=== PATIENT | female | born 1930 | race Caucasian/White ===

== ENCOUNTER 2016-11-01 11:08 | Inpatient (IN) | payer MEDICARE ==
[2016-11-01] VITALS (36 sets, daily range): BP systolic 67–193; BP diastolic 47–108; PULSE 77–136; RESP 12–42; TEMP 97.3–98; O2SAT 91–100
[~2016-11-01] VITALS: Ht 149.9 cm; Wt 54.0 kg
[~2016-11-01 11:08] MED LIST: ACET325 PO; ASPI81TA82 PO; ATEN-100 PO; CALCTAB92 PO; CARD120C4 PO; LEVO50TA51 PO; LORTA5 PO; OMEP20TA PO; REST15CA PO; TAB-TAB PO; VITD400 PO
--- NOTE | 2016-11-01 11:12 | PD ---
HPI Chief Complaint: slurred speech Time Seen by Provider: 11:12 Travel History International Travel<30 days: No Contact w/Intl Traveler<30days: No Traveled to known affect area: No History of Present Illness HPI 86-year-old female came to the emergency room brought straight back emergent from triage for slurred speech. Her is here who is giving most of the history. He says that since yesterday morning she's been having this slurred speech. Patient is very hard of hearing and unable to give significant history for herself. She looks to be in distress and tachycardia. She looked short of breath as well and sats were 93% on room air. Patient is denying of any chest pain or headache. [facility] Past Medical History Narrative Medical List of her past medical, surgical, social and family history as reviewed from the nursing note. Arthritis: Yes Asthma: No Heart Rhythm Problems: Yes Cancer: No Cardiac Catheterization: No Cardiovascular Problems: Yes High Cholesterol: No Chest Pain: No Congestive Heart Failure: No COPD: No Cerebrovascular Accident: No Diabetes: No Diminished Hearing: No Endocrine: Yes Gastrointestinal Disorders: Yes GERD: Yes Glaucoma: No Genitourinary: Yes Headaches: Yes Hepatitis: No Hiatal Hernia: No Hypertension: Yes Immune Disorder: No Kidney Stones: No Migraines: Yes Myocardial Infarction: No Renal Failure: No Seizures: No Sleep Apnea: No Thyroid Disease: Yes Ulcer: No Menopausal: Yes Past Surgical History Abdominal Surgery: No AICD: No Appendectomy: Yes Cardiac Surgery: No Cholecystectomy: Yes Coronary Artery Bypass Graft: No Endocrine Surgery: No Eye Surgery: Yes (BILATERAL CATARACT REMOVAL) Genitourinary Surgery: Yes (CYSTOLE, RECTOCELE 05/02) Gynecologic Surgery: Yes (HYSTERECTOMY TOTAL) Hysterectomy: Yes Joint Replacement: No Oral Surgery: Yes (TONSILLECTOMY) Pacemaker: No Thoracic Surgery: No Tonsillectomy: Yes Other Surgery: Yes (COLONOSCOPY/HEMMORHOIDS) Social History Alcohol Use: Yes (OCCASSIONAL WINE) Tobacco Use: No Substance Use: No Allergies-Medications (Allergen,Severity, Reaction): Coded Allergies: Prednisone (Verified Allergy, Severe, Hives, 11/01/16) Demerol (Verified Adverse Reaction, Intermediate, HALLUCINATIONS, 11/01/16) Lopressor (Verified Adverse Reaction, Unknown, 11/01/16) unknown Uncoded Allergies: PLASTIC TAPE (Allergy, Mild, RASH, 02/11/13) red rash Comments List of her allergies reviewed from the nursing note. Reported Meds & Prescriptions Reported Meds & Active Scripts Active Reported Aspirin 81 Mg Chew 81 Mg CHEW DAILY Temazepam 30 Mg Cap 30 Mg PO HS PRN Diltiazem (Diltiazem HCl) 120 Mg Tab 120 Mg PO DAILY Levothyroxine (Levothyroxine Sodium) 50 Mcg Tab 50 Mcg PO DAILY Levothyroxine (Levothyroxine Sodium) 100 Mcg Tab 100 Mcg PO SUNDAY AND SUNDAY Atenolol 25 Mg Tab 25 Mg PO HS Prednisone 20 Mg Tab 20 Mg PO BID Narrative Medication List of her home medications reviewed from the nursing note. Review of Systems Except as stated in HPI: all other systems reviewed are Neg Physical Exam Narrative GENERAL: Awake, alert, elderly, frail, moderate distress SKIN: Warm and dry. HEAD: Atraumatic. Normocephalic. EYES: Pupils equal and round. No scleral icterus. No injection or drainage. ENT: No nasal bleeding or discharge. Mucous membranes pink and moist. NECK: Trachea midline. No JVD. CARDIOVASCULAR: Irregularly irregular rhythm with tachycardia. No murmur appreciated. RESPIRATORY: Respiratory distress with accessory muscles used. By basilar crackles GASTROINTESTINAL: Abdomen soft, non-tender, nondistended. Hepatic and splenic margins not palpable. MUSCULOSKELETAL: No obvious deformities. No clubbing. No cyanosis. No edema. NEUROLOGICAL: Awake and alert. No obvious cranial nerve deficits. Motor grossly within normal limits. Normal speech. PSYCHIATRIC: Appropriate mood and affect; insight and judgment normal. Data Data Last Documented VS Vital Signs Date Time Temp Pulse Resp B/P Pulse Ox O2 Delivery O2 Flow Rate FiO2 11/01/16 13:45 124 22 141/104 95 Nasal Cannula 2 11/01/16 11:40 98.0 Orders Complete Blood Count With Diff (11/01/16 11:12) Comprehensive Metabolic Panel (11/01/16 11:12) Lactic Acid Sepsis Protocol (11/01/16 11:12) Urinalysis - C+S If Indicated (11/01/16 11:12) Blood Culture (11/01/16 11:12) Chest, Single Ap (11/01/16 11:12) Blood Glucose (11/01/16 11:12) Ecg Monitoring (11/01/16 11:12) Iv Access Insert/Monitor (11/01/16 11:12) Oximetry (11/01/16 11:12) Oxygen Administration (11/01/16 11:12) Troponin I (11/01/16 11:12) B-Type Natriuretic Peptide (11/01/16 11:12) Ct Brain W/O Iv Contrast(Rout) (11/01/16 ) Electrocardiogram (11/01/16 ) ^ Straight Catheter (11/01/16 12:43) Vital Signs (Adult) Q15MX4,Q4H (11/01/16 12:46) Microarray Operations Vice President / Telemetry TIMOTHY.Q8H (11/01/16 12:46) Cardiac Rhythm TIMOTHY.Q8H (11/01/16 12:46) ^ Notify Dr: Other (11/01/16 12:46) Diltiazem Inj (Cardizem Inj) (11/01/16 13:00) Diltiazem Inj (Cardizem Inj) (11/01/16 13:00) Piperacil-Tazo 4.5 Gm Premix (Zosyn 4.5 (11/01/16 13:15) Azithromycin Inj (Zithromax Inj) (11/01/16 13:15) Admit Order (Ed Use Only) (11/01/16 13:45) Labs Laboratory Tests Test 11/01/16 11/01/16 11:20 11:36 White Blood Count 12.7 TH/MM3 Red Blood Count 5.01 MIL/MM3 Hemoglobin 14.9 GM/DL Hematocrit 44.3 % Mean Corpuscular Volume 88.3 FL Mean Corpuscular Hemoglobin 29.7 PG Mean Corpuscular Hemoglobin 33.7 % Concent Red Cell Distribution Width 20.3 % Platelet Count 156 TH/MM3 Mean Platelet Volume 8.5 FL Neutrophils (%) (Auto) 83.3 % Lymphocytes (%) (Auto) 8.4 % Monocytes (%) (Auto) 8.2 % Eosinophils (%) (Auto) 0.0 % Basophils (%) (Auto) 0.1 % Neutrophils # (Auto) 10.6 TH/MM3 Lymphocytes # (Auto) 1.1 TH/MM3 Monocytes # (Auto) 1.0 TH/MM3 Eosinophils # (Auto) 0.0 TH/MM3 Basophils # (Auto) 0.0 TH/MM3 CBC Comment AUTO DIFF Differential Total Cells 100 Counted Neutrophils % (Manual) 76 % Band Neutrophils % 14 % Lymphocytes % 5 % Monocytes % 5 % Neutrophils # (Manual) 11.4 TH/MM3 Differential Comment FINAL DIFF MANUAL Platelet Estimate NORMAL Platelet Morphology Comment NORMAL Sodium Level 129 MEQ/L Potassium Level 4.1 MEQ/L Chloride Level 92 MEQ/L Carbon Dioxide Level 24.6 MEQ/L Anion Gap 12 MEQ/L Blood Urea Nitrogen 20 MG/DL Creatinine 0.73 MG/DL Estimat Glomerular Filtration 75 ML/MIN Rate Random Glucose 119 MG/DL Lactic Acid Level 3.8 mmol/L Calcium Level 8.3 MG/DL Total Bilirubin 1.1 MG/DL Aspartate Amino Transf 42 U/L (AST/SGOT) Alanine Aminotransferase 94 U/L (ALT/SGPT) Alkaline Phosphatase 68 U/L Troponin I 0.07 NG/ML B-Type Natriuretic Peptide 1109 PG/ML Total Protein 7.0 GM/DL Albumin 3.4 GM/DL Urine Color YELLOW Urine Turbidity CLEAR Urine pH 6.5 Urine Specific [place] 1.013 Urine Protein 100 mg/dL Urine Glucose (UA) NEG mg/dL Urine Ketones NEG mg/dL Urine Occult Blood NEG Urine Nitrite NEG Urine Bilirubin NEG Urine Urobilinogen LESS THAN 2.0 MG/DL Urine Leukocyte Esterase NEG Urine RBC 2 /hpf Urine WBC LESS THAN 1 /hpf Microscopic Urinalysis Comment CATH-CULT NOT IND MDM Medical Decision Making Medical Screen Exam Complete: Yes Emergency Medical Condition: Yes Medical Record Reviewed: Yes Interpretation(s) Twelve-lead EKG was reviewed by me. Atrial fibrillation, left axis deviation, RVR. Heart rate of 112 bpm. Differential Diagnosis Pneumonia, CVA, TIA Narrative Course 1:39 PM patient was given Cardizem to lower her heart rate. I did not get any significant neurologic deficit. Patient is very hard of hearing and difficult to follow commands. Her neuro exam was difficult. Blood test result showed leukocytosis along with bibasilar infiltrate. Head CT was negative. Patient's lactic acid was elevated. I have ordered IV Zosyn and Zithromax. In my opinion this is a case of pneumonia with sepsis. Patient will require to be admitted. Awaiting for the hospitalist call back. Patient does have history of atrial fibrillation and is not anticoagulated and hence there is a possibility of TIA/CVAs. However currently her exam did not seem like CVA. I' m little concerned from sepsis standpoint. I did cover her for sepsis with antibiotic but did not give her IV fluid since her BNP is elevated and with her A. fib with RVR there is a chance of congestive heart failure. Patient will require admission. 4:50 PM I was called in patient's room by the nurse because patient's blood pressure was in the 60s systolic and she was becoming incoherent and 8, respirations. The admitting physician was in the room and talking to the patient. Patient was unable to verbalize any of his questions. In fact not sure if she really understood what he was saying given her state. I decided to intubate her at that point. Patient was a full code. She was getting 2 L of IV fluid bolus under pressure bag. She was RSI. After the intubation blood pressure continued to be in 60s to 70s. I decided to put a central line and start her on pressors. It was also noticed that patient is on prednisone. I gave her 100 mg of IV hydrocortisone as a stress dose steroid. Patient will need to be admitted to the ICU given the situation. The admitting physician will speak with the dictating machine mechanic. I looked at the post intubation and postcentral line x-ray. The ET tube and the central line and looks to be in good position. No pneumothorax. Critical Care Narrative Aggregate critical care time was 75 minutes. Time to perform other separately billable procedures was not included in the critical care time. My time did not include minutes spent treating any other patients simultaneously or on activities that did not directly contribute to the patient's treatment. The services I provided to this patient were to treat and/or prevent clinically significant deterioration that could result in: Sepsis, pneumonia, A. fib with RVR I provided critical care services requiring my management, as noted below: Chart data review, documentation time, medication orders and management, vital sign assessments/reviewing monitor data, ordering and reviewing lab tests, ordering and interpreting/reviewing x-rays and diagnostic studies, care of the patient and discussion of the patient with the admitting physicians. Procedures Procedure Narrative After the risks and benefits were discussed the following procedure was performed: INTUBATION: The patient was put in optimal position for the procedure. Rapid sequence intubation was initiated by me using 10 milligrams of etomidate IV and 50 milligrams of succinylcholine IV. The patient was intubated with a 7.5 cuffed endotracheal tube. Tube placement was confirmed by visualization of the tube and balloon passing through the cords, capnometry and subsequent chest x-ray. Breath sounds were equal and well aerated bilaterally postintubation. No breath sounds over stomach. Patient tolerated procedure well. CENTRAL VENOUS LINE: The site was prepped with Betadine and sterilely draped. It was infiltrated with 1% lidocaine plain. The deep vein was cannulated using normal Seldinger technique. A triple lumen central line was placed in the left subclavian site and secured with simple interrupted suture. The site was sterilely dressed. The patient tolerated the procedure well. EKG Prior to Arrival: Yes Physician Communication Physician Communication Dr. Mane, Dr. Spivey Diagnosis Primary Impression: Sepsis Qualified Code: A41.9 - Sepsis, due to unspecified organism Additional Impressions: Pneumonia Qualified Code: J18.9 - Pneumonia of both lower lobes due to infectious organism Atrial fibrillation with RVR Respiratory failure requiring intubation Septic shock Admitting Information Admitting Physician Requests: Admit Keyonna Estrada MD Nov 01, 2016 11:12
[2016-11-01] MEDS ORDERED: LEVO100T5 PO (11:28)
[2016-11-01] MEDS ORDERED: PRED20 PO (11:28)
[2016-11-01] MEDS ORDERED: ASPI81CH CHEW (11:28)
[2016-11-01] MEDS ORDERED: ATEN25TA PO (11:28)
[2016-11-01] MEDS ORDERED: LEVO50TA4 PO (11:28)
[2016-11-01] MEDS ORDERED: TEMA30CA PO (11:28)
[2016-11-01] MEDS ORDERED: DILT120T PO (11:28)
[2016-11-01 11:42] LABS: AUTOMATED NEUTROPHIL # 10.6 TH/MM3 (1.8-7.7); BASOPHIL % 0.1 % (0.0-2.0); HEMATOCRIT 44.3 % (35.0-46.0); LYMPH % 8.4 % (9.0-44.0); LYMPHOCYTE # 1.1 TH/MM3 (1.0-4.8); MEAN CELL VOLUME 88.3 FL (80.0-100.0); MEAN CORPUSCULAR HEMOGLOBIN 29.7 PG (27.0-34.0); MEAN CORPUSCULAR HGB CONC 33.7 % (32.0-36.0); MONO % 8.2 % (0.0-8.0); NEUT % 83.3 % (16.0-70.0); PLATELET COUNT 156 TH/MM3 (150-450); RED BLOOD COUNT 5.01 MIL/MM3 (4.00-5.30); RED CELL DISTRIBUTION WIDTH 20.3 % (11.6-17.2); WHITE BLOOD COUNT 12.7 TH/MM3 (4.0-11.0)
[2016-11-01 11:46] LABS: HEMO FLAGS AUTO DIFF
[2016-11-01 11:56] LABS: BLOOD, URINE NEG (NEG); GLUCOSE,URINE NEG (NEG); KETONE, URINE NEG (NEG); NITRITE,URINE NEG (NEG); PH, URINE 6.5 (5.0-8.5); URINE COLOR YELLOW (YELLW/STRAW)
[2016-11-01 11:57] LABS: COMMENT (UR) CATH-CULT NOT IND; CULTURE IF INDICATED CATH CULTURE NOT IND
[2016-11-01 12:03] LABS: ALKALINE PHOSPHATASE 68 U/L (45-117); TOTAL BILIRUBIN ADULT 1.1 MG/DL (0.2-1.0)
[2016-11-01 12:08] LABS: ALT (GPT) 94 U/L (10-53); ANION GAP 12 MEQ/L (5-15); AST (GOT) 42 U/L (15-37); BICARBONATE 24.6 MEQ/L (21.0-32.0); BLOOD UREA NITROGEN 20 MG/DL (7-18); CHLORIDE 92 MEQ/L (98-107); GLOMERULAR FILTRATION RATE 75 ML/MIN (>89); POTASSIUM 4.1 MEQ/L (3.5-5.1); SODIUM (NA) 129 MEQ/L (136-145)
[2016-11-01 12:27] LABS: BANDS 14 % (0-6); NEUTROPHIL # MANUAL DIFF 11.4 TH/MM3 (1.8-7.7); PLATELET ESTIMATE SMEAR NORMAL (NORMAL); POLYS (SEG NEUTROPHILS) 76 % (16-70); WBC DIFF SAMPLE 100
[2016-11-01 12:28] LABS: PLATELET MORPHOLOGY NORMAL (NORMAL); SCAN/DIFF FINAL DIFF MANUAL
--- NOTE | 2016-11-01 12:43 | RADRPT ---
EXAM DATE/TIME: 11/01/2016 11:33 [facility] COMPARISON: No previous studies available for comparison. INDICATIONS : Short of breath. Slurred speech, fatigue. MEDICAL HISTORY : None. SURGICAL HISTORY : None. ENCOUNTER: Initial ACUITY: 2 days PAIN SCORE: 0/10 LOCATION: Bilateral chest FINDINGS: Dense consolidation seen medially of both lung bases. There are small, bilateral pleural effusions. I don't see a pneumothorax. Heart size stable, upper limits of normal. Thoracic aorta is mildly tortuous. CONCLUSION: Bibasilar pneumonia. Abhijeet Domingo MD on November 01, 2016 at 12:40 Board Certified Radiologist. This report was verified electronically.
--- NOTE | 2016-11-01 12:55 | RADRPT ---
EXAM DATE/TIME: 11/01/2016 11:53 [facility] COMPARISON: No previous studies available for comparison. INDICATIONS : TIA RADIATION DOSE: 30.97 CTDIvol (mGy) MEDICAL HISTORY : Cardiovascular disease. Hypertension. SURGICAL HISTORY : Appendectomy. Cholecystectomy.Hysterectomy. ENCOUNTER: Initial ACUITY: 1 day PAIN SCALE: 5/10 LOCATION: cranial TECHNIQUE: Multiple contiguous axial images were obtained of the head. Using automated exposure control and adj ustment of the mA and/or kV according to patient size, radiation dose was kept as low as reasonably a chievable to obtain optimal diagnostic quality images. FINDINGS: CEREBRUM: The ventricles are normal for age. No evidence of midline shift, mass lesion, hemorrhage or acute in farction. No extra-axial fluid collections are seen. Diffuse cortical atrophy noted. POSTERIOR FOSSA: The cerebellum and brainstem are intact. The 4th ventricle is midline. The cerebellopontine angle i s unremarkable. EXTRACRANIAL: The visualized portion of the orbits is intact. SKULL: The calvaria is intact. No evidence of skull fracture. CONCLUSION: Atrophy. No acute intracranial abnormality demonstrated. Abhijeet Domingo MD on November 01, 2016 at 12:53 Board Certified Radiologist. This report was verified electronically.
[2016-11-01] MEDS ORDERED: DILTIAZEM HCL 25 MG/5 ML VIAL IVP ONE (13:00)
[2016-11-01] MEDS ORDERED: AZITHROMYCIN INJ 500 MG in SODIUM CHLOR 0.9% 250 ML INJ 250 ML IV ONE (13:15)
[2016-11-01] MEDS ORDERED: PIPERACIL-TAZO 4.5 GM PREMIX 100 ML IV ONE (13:15)
[2016-11-01 13:35] LABS: LACTIC ACID GHOST NOT REPORTABLE
[2016-11-01] MEDS: DILTIAZEM INJ 125 MG in SODIUM CHLORIDE 0.9% INJ 100 ML IV SCH (13:43)
--- NOTE | 2016-11-01 15:59 | HHI.HP ---
HPI Service [facility] Hospitalists Primary Care Physician Joaquin Guzmán MD Admission Diagnosis sepsis, pneumonia, A. fib with RVR Chief Complaint: Slurred speech Travel History International Travel<30 Days: No Contact w/Intl Traveler <30 Da: No Traveled to Known Affected Are: No History of Present Illness Ms. Carvajal is a pleasant 86 y/o WF with a hx of paroxysmal atrial fibrillation, COPD, chronic hyponatremia felt to be a reset osmostat, peripheral neuropathy, hypertension, anxiety, and hx of pulmonary nodules felt to likely be lung cancer as her PCP and Dr. Gaytan have been monitoring this for several years but more recently this has been increasing in size. CT scan on 06-09-16 showed a 5.6cm presumed lung cancer of the posterior right lung base. She has declined further workup/intervention or treatment for this and is followed by Dr Nina Osborne. Pt presented to the ED at [facility] on 11/01/16 with reported slurred speech since yesterday morning. The patient is very hard of hearing and was unable to give significant history for herself to the ED but had a friend present with her. Pt found to be in A. fib RVR with HR in the 120-130's. She was given IV Cardizem and started on a Cardizem gtt. Head CT noted atrophy otherwise no acute changes. Pt also noted to be in respiratory distress. CXR indicated possible bibasilar pneumonia. Pt was given Azithromycin and Rocephin. At the time of our examination the pt was in significant respiratory distress on nonrebreather and the pts nurse states that the pts BP has dropped into the 60' s systolic. Pt is a full code and was being set up for intubation by the ER physician. Review of Systems ROS Limitations: Clinical Condition Past Family Social History Past Medical History Chronic hyponatremia, felt to be a reset osmostat Paroxysmal atrial fibrillation Pulmonary nodules (CT scan on 06-09-16 showed a 5.6cm presumed lung cancer of the posterior right lung base. She still declines further intervention or treatment for this and is followed by Dr Harrison.) Postmenopausal osteoporosis Peripheral neuropathy Hypertension Anxiety Decreased hearing Hypothyroidism GERD Mitral valve prolapse COPD Memory issues 2-D echo 11/2011 - Estimated EF of 65% - Left atrium mildly dilated - The right atrium normal size. - Mild to moderate aortic regurgitation - Mild to moderate mitral regurgitation - Pulmonary pressures were estimated to be normal. Myocardial perfusion scan on 02-12-13 showed no ischemia and an EF of 64%. Past Surgical History ANDRZEJ with BSO Cholecystectomy Cystocele and rectocele repair Tonsillectomy Bilateral cataract surgery Reported Medications -Aspirin 81 Mg CHEW DAILY -Temazepam 30 Mg PO HS PRN -Diltiazem 60 Mg PO DAILY -Levothyroxine 50 Mcg PO -Levothyroxine 100 Mcg PO [place]- -Atenolol 25 Mg PO HS ?Prednisone 20 Mg PO BID Allergies: Coded Allergies: Prednisone (Verified Allergy, Severe, Hives, 11/01/16) Demerol (Verified Adverse Reaction, Intermediate, HALLUCINATIONS, 11/01/16) Lopressor (Verified Adverse Reaction, Unknown, 11/01/16) unknown Uncoded Allergies: PLASTIC TAPE (Allergy, Mild, RASH, 02/11/13) red rash Family History Mother with a hx of MS and colon cancer Father with a hx of laryngeal cancer Social History Hx of tobacco use, smoked 1ppd x 15 years, quit around 1986 Occasional alcohol use Denies any illicit drug use Physical Exam Vital Signs Vital Signs Date Time Temp Pulse Resp B/P Pulse Ox O2 Delivery O2 Flow Rate FiO2 11/01/16 14:27 124 18 124/91 96 Nasal Cannula 3 11/01/16 14:02 114 18 118/84 96 Nasal Cannula 3 11/01/16 13:50 103 18 106/72 92 Nasal Cannula 3 11/01/16 13:49 119 22 107/72 95 Nasal Cannula 2 11/01/16 13:45 124 22 141/104 95 Nasal Cannula 2 11/01/16 13:42 136 24 142/108 97 Nasal Cannula 2 11/01/16 12:45 122 28 142/99 96 Nasal Cannula 2 11/01/16 11:40 98.0 125 40 160/98 99 Nasal Cannula 2 11/01/16 11:14 96 Nasal Cannula 2 11/01/16 11:14 46 96 Nasal Cannula 2 11/01/16 11:10 97.9 125 42 145/90 94 Physical Exam GENERAL: Thin elderly female in respiratory distress HEENT: Atraumatic. Normocephalic. No temporal or scalp tenderness. No scleral icterus. Airway patent. NECK: Trachea midline, supple, nontender. CARDIO: Irregular, tachy. RESP: Coarse breath sounds bilaterally ABD: +BS, soft, non-tender, nondistended. EXT: Extremities without clubbing, cyanosis, or edema. NEURO: Unable to assess Laboratory Laboratory Tests Test 11/01/16 11/01/16 11/01/16 11:20 11:36 14:38 White Blood Count 12.7 Red Blood Count 5.01 Hemoglobin 14.9 Hematocrit 44.3 Mean Corpuscular Volume 88.3 Mean Corpuscular Hemoglobin 29.7 Mean Corpuscular Hemoglobin 33.7 Concent Red Cell Distribution Width 20.3 Platelet Count 156 Mean Platelet Volume 8.5 Neutrophils (%) (Auto) 83.3 Lymphocytes (%) (Auto) 8.4 Monocytes (%) (Auto) 8.2 Eosinophils (%) (Auto) 0.0 Basophils (%) (Auto) 0.1 Neutrophils # (Auto) 10.6 Lymphocytes # (Auto) 1.1 Monocytes # (Auto) 1.0 Eosinophils # (Auto) 0.0 Basophils # (Auto) 0.0 CBC Comment AUTO DIFF Differential Total Cells 100 Counted Neutrophils % (Manual) 76 Band Neutrophils % 14 Lymphocytes % 5 Monocytes % 5 Neutrophils # (Manual) 11.4 Differential Comment FINAL DIFF MANUAL Platelet Estimate NORMAL Platelet Morphology Comment NORMAL Sodium Level 129 Potassium Level 4.1 Chloride Level 92 Carbon Dioxide Level 24.6 Anion Gap 12 Blood Urea Nitrogen 20 Creatinine 0.73 Estimat Glomerular Filtration 75 Rate Random Glucose 119 Lactic Acid Level 3.8 2.1 Calcium Level 8.3 Total Bilirubin 1.1 Aspartate Amino Transf 42 (AST/SGOT) Alanine Aminotransferase 94 (ALT/SGPT) Alkaline Phosphatase 68 Troponin I 0.07 B-Type Natriuretic Peptide 1109 Total Protein 7.0 Albumin 3.4 Urine Color YELLOW Urine Turbidity CLEAR Urine pH 6.5 Urine Specific [place] 1.013 Urine Protein 100 Urine Glucose (UA) NEG Urine Ketones NEG Urine Occult Blood NEG Urine Nitrite NEG Urine Bilirubin NEG Urine Urobilinogen LESS THAN 2.0 Urine Leukocyte Esterase NEG Urine RBC 2 Urine WBC LESS THAN 1 Microscopic Urinalysis Comment CATH-CULT NOT IND Date/Time Procedure Status Source Growth 11/01/16 11:20 Aerobic Blood Culture Received Blood Peripheral Pending 11/01/16 11:20 Anaerobic Blood Culture Received Blood Peripheral Pending Result Diagram: 11/01/16 1120 11/01/16 1120 Imaging Last Impressions Chest X-Ray 11/01/16 1112 Signed Impressions: Service Date/Time: Tuesday, November 01, 2016 11:33 - CONCLUSION: Bibasilar pneumonia. Abhijeet Domingo MD Head CT 11/01/16 0000 Signed Impressions: Service Date/Time: Tuesday, November 01, 2016 11:53 - CONCLUSION: Atrophy. No acute intracranial abnormality demonstrated. Abhijeet Domingo MD Septic Shock Reassessment Heart: Irregular Lungs: Course Skin: Warm Assessment and Plan Problem List: (1) Respiratory failure requiring intubation Status: Acute Plan: - Pt admitted with increased respiratory effort requiring intubation in the ED. - CXR noted bibasilar pneumonia. - Pt with known right lower lobe pulmonary mass which has been monitored by Dr. Gaytan as an outpt and she has declined further workup/biopsy or treatment. - Pt is reportedly a full code and required intubation in the ED - Cloth Shrinking Supervisor is consulted and will assume care of the pt. (2) Atrial fibrillation with RVR Status: Acute Plan: - Pt with hx of paroxysmal atrial fibrillation and was noted ot noris Christianson fib RVR in the ED - Pt has been started on Cardizem gtt but BP has bottomed out with systolic BP in the 60's - Further management per Cloth Shrinking Supervisor - Telemetry - Pt normally takes Atenolol 25mg po daily and Cardizem 60mg po daily at home. (3) Pneumonia Status: Acute Plan: - See above. (4) Pulmonary nodule Status: Chronic Plan: - Pt follows with Dr. Gaytan - Previous CT scan on 06-09-16 showed a 5.6cm presumed lung cancer of the posterior right lung base. She still declines further intervention or treatment for this. (5) HTN (hypertension) Status: Chronic Plan: - BP low at admission (6) Chronic hyponatremia Status: Chronic Plan: - Stable. - Na+ tends to be around 130 per outpt records Assessment and Plan Patient examined. Assessment and plan formulated with Mindy Cowart PA-C. I agree with the above. when I entered the room pt became hypotensive and more respiratory distress. she was intubated and [facility] consulted. Discussed with Dr Spivey. pt will be on [facility] sv for now. Physician Certification 2 Midnight Certification Type: Admission for Inpatient Services Order for Inpatient Services The services are ordered in accordance with Medicare regulations or non- Medicare payer requirements, as applicable. In the case of services not specified as inpatient-only, they are appropriately provided as inpatient services in accordance with the 2-midnight benchmark. Estimated LOS (days): 3 3 days is the estimated time the patient will need to remain in the hospital, assuming treatment plan goals are met and no additional complications. Post-Hospital Plan: Not yet determined Problem Qualifiers (1) Pneumonia: Qualified Code: J18.9 - Pneumonia of both lower lobes due to infectious organism Mindy Cowart Nov 01, 2016 15:59 Maury Reyes MD Nov 01, 2016 17:21
[2016-11-01] MEDS ORDERED: ETOMIDATE 20 MG/10 ML VIAL ONE (16:13)
[2016-11-01] MEDS ORDERED: SUCCINYLCHOLINE CHLORIDE 200 MG/10 ML VIAL ONE (16:14)
[2016-11-01] MEDS ORDERED: HYDROCORTISONE SOD SUCCINATE 100 MG VIAL IV PUSH ONE (16:30)
[2016-11-01] MEDS ORDERED: MIDAZOLAM HCL 5 MG/ML VIAL (1 ML) ONE (16:39)
[2016-11-01] MEDS ORDERED: SODIUM CHLOR 0.9% 1000 ML INJ 1,000 ML IV ONE ×3 (16:45→17:08)
[2016-11-01] MEDS ORDERED: ETOMIDATE 20 MG/10 ML VIAL IV PUSH ONE (16:45)
[2016-11-01] MEDS ORDERED: SUCCINYLCHOLINE CHLORIDE 200 MG/10 ML VIAL IV PUSH ONE (16:45)
[2016-11-01] MEDS ORDERED: MIDAZOLAM HCL 2 MG/2 ML VIAL IV PUSH ONE (16:45)
[2016-11-01] MEDS ORDERED: NOREPINEPHRINE-DEXTROSE DRIP 250 ML IV SCH ×2 (17:00→17:15)
[2016-11-01] MEDS ORDERED: TERBUTALINE INJ 1 MG/ML AMP SQ PRN ×2 (17:00→17:15)
[2016-11-01] MEDS ORDERED: NOREPINEPHRINE INJ 4 MG in SODIUM CHLOR 0.9% 250 ML INJ 246 ML IV SCH (17:00)
[2016-11-01] MEDS: SODIUM CHLOR 0.9% 1000 ML INJ 100 ML IV ONE ×2 (17:08→18:00)
[2016-11-01] MEDS: SODIUM CHLOR 0.9% 1000 ML INJ 1,000 ML IV ONE ×2 (17:08→18:04)
--- NOTE | 2016-11-01 17:10 | RADRPT ---
EXAM DATE/TIME: 11/01/2016 16:33 [facility] COMPARISON: CHEST SINGLE AP, November 01, 2016, 11:33. INDICATIONS : ET tube and OG tube placement. MEDICAL HISTORY : unobtainable SURGICAL HISTORY : unobtainable ENCOUNTER: Initial ACUITY: 1 day PAIN SCORE: Non-responsive. LOCATION: Bilateral upper chest FINDINGS: The cardiac silhouette is enlarged in transverse diameter. There are findings of congestive heart herb lure with interstitial and alveolar opacity bilaterally. Endotracheal tube is in good position above the umberto. Nasogastric tube is coiled at the level of the thoracic inlet. Moderate size bilateral pl eural effusions are identified. A left sided subclavian vein catheter is in place without pneumothora x with its tip in the superior vena cava. CONCLUSION: 1. Uncomplicated line placement. No evidence of pneumothorax. 2. Satisfactory position of endotracheal tube as above. 3. Nasogastric tube coiled in the hypopharynx with its tip at the thoracic inlet 4. Cardiomegaly and findings of congestive heart failure. Anil Oconnor MD on November 01, 2016 at 17:08 Board Certified Radiologist. This report was verified electronically.
[2016-11-01] MEDS ORDERED: Vancomycin Consult Pharmacy 1 EA XX SCH (17:15)
[2016-11-01] MEDS ORDERED: PIPERACIL-TAZO 4.5 GM PREMIX 100 ML IV SCH (17:15)
[2016-11-01] MEDS ORDERED: CHLORHEXIDINE GLUCONATE 2 % 1 PACK (2 CLOTHS) TOP PRN (17:15)
[2016-11-01] MEDS ORDERED: MISCELLANEOUS NURSING INFORMATION XX SCH (17:15)
--- NOTE | 2016-11-01 17:20 | PD.CONS ---
HPI Service Critical Care Medicine Consult Requested By Primary Care Physician Joaquin Guzmán MD History of Present Illness 86-year-old female came for slurred speech. Her is here who is giving most of the history. He says that since yesterday morning she's been having this slurred speech. She looked short of breath as well and sats were 93% on room air, was tachycardic and hypotensive. She was intubated by ER attending and is admitted to ICU with bilateral pneumonia. Review of Systems ROS Unable to obtain patient is sedated and intubated Past Family Social History Allergies: Coded Allergies: Prednisone (Verified Allergy, Severe, Hives, 11/01/16) Demerol (Verified Adverse Reaction, Intermediate, HALLUCINATIONS, 11/01/16) Lopressor (Verified Adverse Reaction, Unknown, 11/01/16) unknown Uncoded Allergies: PLASTIC TAPE (Allergy, Mild, RASH, 02/11/13) red rash Past Medical History Chronic hyponatremia, felt to be a reset osmostat Paroxysmal atrial fibrillation Pulmonary nodules (CT scan on 06-09-16 showed a 5.6cm presumed lung cancer of the posterior right lung base. She still declines further intervention or treatment for this and is followed by Dr Harrison.) Postmenopausal osteoporosis Peripheral neuropathy Hypertension Anxiety Decreased hearing Hypothyroidism GERD Mitral valve prolapse COPD Memory issues 2-D echo 11/2011 - Estimated EF of 65% - Left atrium mildly dilated - The right atrium normal size. - Mild to moderate aortic regurgitation - Mild to moderate mitral regurgitation - Pulmonary pressures were estimated to be normal. Myocardial perfusion scan on 02-12-13 showed no ischemia and an EF of 64%. Past Surgical History ANDRZEJ with BSO Cholecystectomy Cystocele and rectocele repair Tonsillectomy Bilateral cataract surgery Reported Medications Reported Meds & Active Scripts Active Reported Aspirin 81 Mg Chew 81 Mg CHEW DAILY Temazepam 30 Mg Cap 30 Mg PO HS PRN Diltiazem (Diltiazem HCl) 120 Mg Tab 120 Mg PO DAILY Levothyroxine (Levothyroxine Sodium) 50 Mcg Tab 50 Mcg PO DAILY Levothyroxine (Levothyroxine Sodium) 100 Mcg Tab 100 Mcg PO SUNDAY AND SUNDAY Atenolol 25 Mg Tab 25 Mg PO HS Prednisone 20 Mg Tab 20 Mg PO BID Active Ordered Medications Current Medications Medications (Trade) Dose Ordered Sig/Boy Route PRN Reason Start Time Stop Time Status Last Admin Dose Admin Diltiazem HCl 125 mg/Sodium Chloride 125 ml @ 0 mls/hr TITRATE IV 11/01/16 13:00 11/01/16 13:43 Sodium Chloride 1,000 ml @ 999 mls/hr BOLUS ONCE IV 11/01/16 16:45 11/01/16 17:45 Sodium Chloride 1,000 ml @ 999 mls/hr BOLUS ONCE IV 11/01/16 16:45 11/01/16 17:45 Norepinephrine Bitartrate 250 ml @ 0 mls/hr TITRATE IV 11/01/16 17:00 Norepinephrine Bitartrate/Sodium Chloride (Levophed Inj/NS 250 ml Inj) 250 ml @ 0 mls/hr TITRATE IV 11/01/16 17:00 Terbutaline Sulfate 1 mg 1 mg UNSCH PRN SQ For Extravasation 11/01/16 17:00 Piperacillin Sod/ Tazobactam Sod 100 ml @ 200 mls/hr Q6H IV 11/01/16 17:15 UNV Azithromycin 500 mg/Sodium Chloride 250 ml @ 250 mls/hr Q24H IV 11/01/16 17:15 UNV Vancomycin HCl 1000 mg/Sodium Chloride 250 ml @ 250 mls/hr Q12H IV 11/01/16 17:15 UNV Pharmacy Profile Note 0 ml @ 0 mls/hr UNSCH XX 11/01/16 17:15 UNV Sodium Chloride (NS 1000 ml Inj) 1,000 ml @ 150 mls/hr Q6H40M IV 11/01/16 17:08 IV Flush (NS Flush) 2 ml UNSCH PRN IV FLUSH FLUSH AFTER USING IV ACCESS 11/01/16 17:15 IV Flush (NS Flush) 2 ml BID IV FLUSH 11/01/16 21:00 Famotidine (Pepcid Inj) 20 mg Q12HR IV PUSH 11/01/16 21:00 UNV Heparin Sodium (Porcine) 5000 units 5,000 units Q12H SQ 11/01/16 17:15 UNV Sodium Chloride 1,000 ml @ 1,000 mls/hr Q1H ONCE IV 11/01/16 17:08 11/01/16 18:07 Sodium Chloride (NS 1000 ml Inj) 1,000 ml @ 1,000 mls/hr Q1H ONCE IV 11/01/16 17:08 11/01/16 18:07 Miscellaneous Information 1 Q361D XX 11/01/16 17:15 Chlorhexidine Gluconate (Chlorhexidine 2% Cloth) 3 pack Taper DAILY@04 TOP 11/02/16 04:00 10/29/17 03:59 Chlorhexidine Gluconate 3 pack 3 pack UNSCH PRN TOP HYGIENIC CARE 11/01/16 17:15 Norepinephrine Bitartrate (Levophed-Dextrose Drip) 250 ml @ 0 mls/hr TITRATE IV 11/01/16 17:15 Terbutaline Sulfate 1 mg 1 mg UNSCH PRN SQ For Extravasation 11/01/16 17:15 Propofol (Diprivan 1000 Mg/100ml Inj) 100 ml @ 0 mls/hr TITRATE IV 11/01/16 17:15 Chlorhexidine Gluconate (Peridex 0.12% Liq) 15 ml BID@08,20 MT 11/01/16 20:00 Protein (Beneprotein Powder) 1 pack TID G-TUBE 11/01/16 18:00 Family History Noncontributory Social History Quit smoking in 1986 Physical Exam Vital Signs Vital Signs Date Time Temp Pulse Resp B/P Pulse Ox O2 Delivery O2 Flow Rate FiO2 11/01/16 17:02 82 18 67/52 99 Ventilator 100 11/01/16 16:39 124 18 109/76 96 Ventilator 100 11/01/16 16:24 91 18 77/61 96 Ventilator 100 11/01/16 16:22 91 18 85/59 91 Ventilator 100 11/01/16 16:19 100 11/01/16 16:12 115 24 69/52 92 Non-Rebreather 15 11/01/16 16:01 96 24 67/47 94 Nasal Cannula 3 11/01/16 15:45 95 16 81/57 95 Nasal Cannula 3 11/01/16 15:30 112 16 113/78 96 Nasal Cannula 3 11/01/16 15:00 116 12 101/84 97 Nasal Cannula 3 11/01/16 14:27 124 18 124/91 96 Nasal Cannula 3 11/01/16 14:02 114 18 118/84 96 Nasal Cannula 3 11/01/16 13:50 103 18 106/72 92 Nasal Cannula 3 11/01/16 13:49 119 22 107/72 95 Nasal Cannula 2 11/01/16 13:45 124 22 141/104 95 Nasal Cannula 2 11/01/16 13:42 136 24 142/108 97 Nasal Cannula 2 11/01/16 12:45 122 28 142/99 96 Nasal Cannula 2 11/01/16 11:40 98.0 125 40 160/98 99 Nasal Cannula 2 11/01/16 11:14 96 Nasal Cannula 2 11/01/16 11:14 46 96 Nasal Cannula 2 11/01/16 11:10 97.9 125 42 145/90 94 Physical Exam GENERAL: Elderly cyanotic female malnourished sedated and intubated SKIN: Warm and dry. HEAD: Normocephalic. EYES: No scleral icterus. No injection or drainage. NECK: Supple, trachea midline. No JVD or lymphadenopathy. CARDIOVASCULAR: Regular rate and rhythm without murmurs, gallops, or rubs. RESPIRATORY: Breath sounds equal bilaterally. No accessory muscle use. GASTROINTESTINAL: Abdomen soft, non-tender, nondistended. MUSCULOSKELETAL: No cyanosis, or edema. BACK: Nontender without obvious deformity. No CVA tenderness. Laboratory Laboratory Tests Test 11/01/16 11/01/16 11/01/16 11:20 11:36 14:38 White Blood Count 12.7 Red Blood Count 5.01 Hemoglobin 14.9 Hematocrit 44.3 Mean Corpuscular Volume 88.3 Mean Corpuscular Hemoglobin 29.7 Mean Corpuscular Hemoglobin 33.7 Concent Red Cell Distribution Width 20.3 Platelet Count 156 Mean Platelet Volume 8.5 Neutrophils (%) (Auto) 83.3 Lymphocytes (%) (Auto) 8.4 Monocytes (%) (Auto) 8.2 Eosinophils (%) (Auto) 0.0 Basophils (%) (Auto) 0.1 Neutrophils # (Auto) 10.6 Lymphocytes # (Auto) 1.1 Monocytes # (Auto) 1.0 Eosinophils # (Auto) 0.0 Basophils # (Auto) 0.0 CBC Comment AUTO DIFF Differential Total Cells 100 Counted Neutrophils % (Manual) 76 Band Neutrophils % 14 Lymphocytes % 5 Monocytes % 5 Neutrophils # (Manual) 11.4 Differential Comment FINAL DIFF MANUAL Platelet Estimate NORMAL Platelet Morphology Comment NORMAL Sodium Level 129 Potassium Level 4.1 Chloride Level 92 Carbon Dioxide Level 24.6 Anion Gap 12 Blood Urea Nitrogen 20 Creatinine 0.73 Estimat Glomerular Filtration 75 Rate Random Glucose 119 Lactic Acid Level 3.8 2.1 Calcium Level 8.3 Total Bilirubin 1.1 Aspartate Amino Transf 42 (AST/SGOT) Alanine Aminotransferase 94 (ALT/SGPT) Alkaline Phosphatase 68 Troponin I 0.07 B-Type Natriuretic Peptide 1109 Total Protein 7.0 Albumin 3.4 Urine Color YELLOW Urine Turbidity CLEAR Urine pH 6.5 Urine Specific [place] 1.013 Urine Protein 100 Urine Glucose (UA) NEG Urine Ketones NEG Urine Occult Blood NEG Urine Nitrite NEG Urine Bilirubin NEG Urine Urobilinogen LESS THAN 2.0 Urine Leukocyte Esterase NEG Urine RBC 2 Urine WBC LESS THAN 1 Microscopic Urinalysis Comment CATH-CULT NOT IND Date/Time Procedure Status Source Growth 11/01/16 11:20 Aerobic Blood Culture Received Blood Peripheral Pending 11/01/16 11:20 Anaerobic Blood Culture Received Blood Peripheral Pending Result Diagram: 11/01/16 1120 11/01/16 1120 Imaging Last 24 hours Impressions Chest X-Ray 11/01/16 1112 Signed Impressions: Service Date/Time: Tuesday, November 01, 2016 11:33 - CONCLUSION: Bibasilar pneumonia. Abhijeet Domingo MD Head CT 11/01/16 0000 Signed Impressions: Service Date/Time: Tuesday, November 01, 2016 11:53 - CONCLUSION: Atrophy. No acute intracranial abnormality demonstrated. Abhijeet Domingo MD Chest X-Ray 11/01/16 0000 Signed Impressions: Service Date/Time: Tuesday, November 01, 2016 16:33 - CONCLUSION: 1. Uncomplicated line placement. No evidence of pneumothorax. 2. Satisfactory position of endotracheal tube as above. 3. Nasogastric tube coiled in the hypopharynx with its tip at the thoracic inlet 4. Cardiomegaly and findings of congestive heart failure. Anil Oconnor MD Assessment and Plan Assessment and Plan Respiratory failure - bilateral pneumonia - Broad-spectrum antibiotics - Mechanical ventilation - Follow-up cultures - CT chest to rule out SVC syndrome Septic shock - Due to above - Central line - Arterial line - Monitor SVV - Aggressive IV fluid resuscitation - IV hydrocortisone Hyponatremia - Per chart chronic - Pulmonary nodule - possible malignancy - CT chest with contrast Hypothyroidism - Synthroid DVT GI prophylaxis - Heparin and Pepcid Critical Care: The total critical care time was 35 minutes. Time to perform other separately billable procedures was not included in the critical care time. Isaac Spivey MD Nov 01, 2016 17:20
[2016-11-01 17:30] LABS: BLOOD GAS BASE EXCESS -9.5 mmol/L (-2-2); BLOOD GAS CARBOXYHEMOGLOBIN 0.9 % (0-4); BLOOD GAS HCO3 14 mmol/L (22-26); BLOOD GAS METHEMOGLOBIN 0.1 % (0-2); BLOOD GAS O2 HGB SATURATION 99 % (90-100); BLOOD GAS PCO2 24 mmHg (38-42); BLOOD GAS PO2 296 mmHG (61-120); CRITICAL VALUE YES; OXYGEN DEVICE VENTILATOR; TEMP CORR TO 98.6
[2016-11-01 17:31] LABS: DRAW SITE BR; FIO2 100 %; NUMBER OF ARTERIAL PUNCTURES 1; STAT NO; ULNAR PULSE PRESENT; VENT SETTINGS AC/18/500/PEEP+5
[2016-11-01] MEDS: SODIUM CHLOR 0.9% 1000 ML INJ 1,000 ML IV SCH ×2 (17:50→23:48)
[2016-11-01] MEDS: BENEPROTEIN POWDER 1 PACK G-TUBE SCH (18:00)
[2016-11-01] MEDS: RESP: ALBUTEROL 2.5 MG/IPRATROPIUM 0.5 MG NEB (SCH) INH ×2 (18:04→23:18)
[2016-11-01] MEDS ORDERED: RESP: ALBUTEROL 2.5 MG/IPRATROPIUM 0.5 MG NEB (PRN) NEB (18:15)
[2016-11-01] MEDS: PROPOFOL 1000 MG/100 ML INJ 100 ML IV SCH (18:33)
[2016-11-01] MEDS ORDERED: IOHEXOL 350 MG/ML 10 ML VIAL (for RAD DIAG) IV ONE (18:52)
--- NOTE | 2016-11-01 19:05 | RADRPT ---
EXAM DATE/TIME: 11/01/2016 18:43 CORRECTION Corrected on: November 07, 2016; Added Radiation Dose [facility] COMPARISON: No previous studies available for comparison. INDICATIONS : Evaluate for pulmonary disease. IV CONTRAST: 57 cc Omnipaque 350 (iohexol) IV RADIATION DOSE: 5.10 CTDIvol (mGy) MEDICAL HISTORY : Hypertension. SURGICAL HISTORY : Cholecystectomy. Hysterectomy. ENCOUNTER: Initial ACUITY: 1 day PAIN SCALE: Non-responsive LOCATION: Bilateral chest TECHNIQUE: Volumetric scanning of the chest was performed. Using automated exposure control and adjustment of t he mA and/or kV according to patient size, radiation dose was kept as low as reasonably achievable to obtain optimal diagnostic quality images. FINDINGS: LUNGS: There is bibasilar consolidation. No concerning pulmonary nodule is visualized. PLEURA: Moderate right and small left pleural effusion. MEDIASTINUM: The heart and great vessels demonstrate no acute abnormality. There is no mediastinal or hilar lymph adenopathy. The large pulmonary arteries. SVC appears patent. No pulmonary wasn't seen. AXILLAE: Within normal limits. No lymphadenopathy. SKELETAL: Within normal limits for patient age. MISCELLANEOUS: The visualized upper abdominal organs demonstrate no acute abnormality. Left subclavian central line. Endotracheal tube and nasogastric tube. CONCLUSION: 1. Bibasilar consolidation. 2. Moderate right and small left pleural effusion. 3. Enlarged pulmonary trunk and pulmonary arteries consistent with pulmonary arterial hypertension. 4. SVC appears patent. Jeremias Simpson MD on November 01, 2016 at 19:01 Board Certified Radiologist. This report was verified electronically. Embroidery Supervisor on November 07, 2016 at 10:25 Board Certified Radiologist. This report was verified electronically.
[2016-11-01] MEDS ORDERED: VANCOMYCIN INJ 1,000 MG in SODIUM CHLOR 0.9% 250 ML INJ 250 ML IV ONE (19:15)
[2016-11-01 19:47] LABS: LACTIC ACID GHOST NOT REPORTABLE
[2016-11-01] MEDS: PIPERACIL-TAZO 3.375 GM PREMIX 50 ML IV SCH (20:09)
[2016-11-01] MEDS: CHLORHEXIDINE 0.12% (ORAL KIT) 15 ML CUP MT SCH (20:28)
[2016-11-01] MEDS ORDERED: VANCOMYCIN INJ 600 MG in SODIUM CHLOR 0.9% 250 ML INJ 250 ML IV SCH (21:00)
[2016-11-01] MEDS: SODIUM CHLORIDE 0.9% FLUSH 5 ML FLUSH IV FLUSH SCH (21:01)
[2016-11-01] MEDS: FAMOTIDINE 20 MG/2 ML VIAL IV PUSH SCH (21:01)
[2016-11-02] VITALS (19 sets, daily range): BP systolic 81–128; BP diastolic 54–98; PULSE 65–134; RESP 16–18; TEMP 97–98.3; O2SAT 96–100
[2016-11-02] MEDS: PIPERACIL-TAZO 3.375 GM PREMIX 50 ML IV SCH ×4 (03:07→20:46)
[2016-11-02] MEDS: PROPOFOL 1000 MG/100 ML INJ 100 ML IV SCH ×2 (03:07→21:13)
[2016-11-02] MEDS: HYDROCORTISONE SOD SUCCINATE 100 MG VIAL IV PUSH SCH ×3 (03:07→18:16)
[2016-11-02] MEDS: RESP: ALBUTEROL 2.5 MG/IPRATROPIUM 0.5 MG NEB (SCH) INH ×6 (03:34→23:15)
[2016-11-02] MEDS: CHLORHEXIDINE GLUCONATE 2 % 1 PACK (2 CLOTHS) TOP SCH (04:00)
[2016-11-02] MEDS ORDERED: SODIUM BICARBONATE 8.4% INJ 50 MEQ/50 ML SYR IV ONE (05:00)
[2016-11-02] MEDS ORDERED: EPINEPHrine HCL (1:10,000) 1 MG/10 ML SYRINGE IV ONE (05:00)
[2016-11-02 05:41] LABS: AUTOMATED NEUTROPHIL # 10.8 TH/MM3 (1.8-7.7); BASOPHIL % 0.1 % (0.0-2.0); HEMATOCRIT 40.2 % (35.0-46.0); LYMPH % 4.3 % (9.0-44.0); LYMPHOCYTE # 0.5 TH/MM3 (1.0-4.8); MEAN CELL VOLUME 88.3 FL (80.0-100.0); MEAN CORPUSCULAR HEMOGLOBIN 29.6 PG (27.0-34.0); MEAN CORPUSCULAR HGB CONC 33.5 % (32.0-36.0); MONO % 4.4 % (0.0-8.0); NEUT % 91.2 % (16.0-70.0); PLATELET COUNT 117 TH/MM3 (150-450); RED BLOOD COUNT 4.55 MIL/MM3 (4.00-5.30); RED CELL DISTRIBUTION WIDTH 19.9 % (11.6-17.2); WHITE BLOOD COUNT 11.9 TH/MM3 (4.0-11.0)
[2016-11-02 05:43] LABS: HEMO FLAGS AUTO DIFF
[2016-11-02] MEDS: HEPARIN SODIUM - SQ 10,000 UNITS/ML VIAL SQ SCH ×2 (06:00→18:16)
[2016-11-02] MEDS: LEVOTHYROXINE SODIUM 100 MCG TAB PO SCH (06:05)
[2016-11-02] MEDS: SODIUM CHLOR 0.9% 1000 ML INJ 1,000 ML IV SCH ×2 (06:28→13:08)
[2016-11-02 06:36] LABS: BICARBONATE 23.7 MEQ/L (21.0-32.0); CALCIUM-PROTEIN CORRECTED 7.6 MG/DL (8.5-10.1); TOTAL BILIRUBIN ADULT 1.3 MG/DL (0.2-1.0)
[2016-11-02 06:40] LABS: POTASSIUM 2.1 MEQ/L (3.5-5.1)
--- NOTE | 2016-11-02 07:04 | RADRPT ---
EXAM DATE/TIME: 11/02/2016 05:33 [facility] COMPARISON: CHEST SINGLE AP, November 01, 2016, 16:33. INDICATIONS : Shortness of breath, possible pulmonary disease. MEDICAL HISTORY : Hypertension. SURGICAL HISTORY : Cholecystectomy. Hysterectomy. ENCOUNTER: Subsequent ACUITY: 2 days PAIN SCORE: Non-responsive. LOCATION: Bilateral chest FINDINGS: A single view of the chest demonstrates bibasilar effusions with atelectasis. This is stable on the l eft and may be slightly worse on the right. However, the prominent interstitial markings seen previou sly do show some interval improvement possibly representing some resolving interstitial edema. Heart size is prominent. Linear densities paralleling the right hemithorax likely represent skin folds as l sharri markings are identified more laterally. Endotracheal tube and left subclavian central venous cath eter stable in position there interval placement of a nasogastric tube which enters the stomach and e xtends off the inferior aspect of the film. CONCLUSION: 1. Bibasilar effusions with atelectasis. This is stable on the left and slightly worse on the right. 2. However, I believe the interstitial markings are less prominent possibly representing some resolvi ng interstitial edema. Heart size remains prominent. 3. Appropriate position of life support tubes. Prudencio Moore MD on November 02, 2016 at 7:00 Board Certified Radiologist. This report was verified electronically.
[2016-11-02] MEDS: CHLORHEXIDINE 0.12% (ORAL KIT) 15 ML CUP MT SCH ×2 (07:36→21:13)
[2016-11-02 07:55] LABS: BANDS 31 % (0-6); NEUTROPHIL # MANUAL DIFF 11.4 TH/MM3 (1.8-7.7); PLATELET ESTIMATE SMEAR LOW (NORMAL); PLATELET MORPHOLOGY NORMAL (NORMAL); POLYS (SEG NEUTROPHILS) 65 % (16-70); WBC DIFF SAMPLE 100
[2016-11-02 07:56] LABS: SCAN/DIFF FINAL DIFF MANUAL
[2016-11-02] MEDS ORDERED: MAGNESIUM SULFATE INJ 4 GM in SODIUM CHLORIDE 0.9% INJ 92 ML IV PRN (08:30)
[2016-11-02] MEDS ORDERED: MAGNESIUM OXIDE 400 MG TAB PO PRN (08:30)
[2016-11-02] MEDS ORDERED: POTASSIUM PHOSPHATE MONOBASIC 500 MG TAB PO/TUBE PRN (08:30)
[2016-11-02] MEDS ORDERED: MAGNESIUM SULFATE INJ 2 GM in SODIUM CHLORIDE 0.9% INJ 96 ML IV PRN (08:30)
[2016-11-02] MEDS ORDERED: POTASSIUM PHOSPHATE MONOBASIC 500 MG TAB PO PRN (08:30)
[2016-11-02] MEDS ORDERED: SODIUM PHOSPHATE INJ 30 MMOL in SODIUM CHLOR 0.9% 250 ML INJ 240 ML IV PRN (08:30)
[2016-11-02] MEDS ORDERED: POTASSIUM CHLOR 40 MEQ PREMIX 100 ML IV PRN (08:30)
[2016-11-02] MEDS ORDERED: POTASSIUM PHOSPHATE INJ 30 MMOL in SODIUM CHLOR 0.9% 250 ML INJ 250 ML IV PRN (08:30)
--- NOTE | 2016-11-02 08:32 | HHI.CCPN ---
Subjective Remarks/Hospital Course 86-year-old female came for slurred speech. Her is here who is giving most of the history. He says that since yesterday morning she's been having this slurred speech. She looked short of breath as well and sats were 93% on room air, was tachycardic and hypotensive. She was intubated by ER attending and is admitted to ICU with bilateral pneumonia. Objective Vital Signs Date Time Temp Pulse Resp B/P Pulse Ox O2 Delivery O2 Flow Rate FiO2 11/02/16 06:00 129 11/02/16 06:00 40 11/02/16 04:02 100 11/02/16 04:00 97.0 18 122/76 11/01/16 21:01 Ventilator 11/01/16 16:12 15 Intake and Output 11/01/16 11/01/16 11/02/16 08:00 16:00 00:00 Intake Total 2877 ml Output Total 950 ml Balance 1927 ml Result Diagram: 11/02/16 0500 11/02/16 0500 Other Results Microbiology Date/Time Procedure Status Source Growth 11/01/16 11:36 Legionella Antigen - Final Complete Urine Catheterized Urine PRESUMPTIVE NEGATIVE FOR LEGIONELLA P... 11/01/16 11:36 Streptococcus pneumoniae Antigen (M - Final Complete Urine Catheterized Urine PRESUMPTIVE NEGATIVE FOR STREPTOCOCCU... Laboratory Tests Test 11/01/16 17:23 Blood Gas Puncture Site BR Blood Gas Patient Temperature 98.6 Blood Gas HCO3 14 mmol/L (22-26) Blood Gas Base Excess -9.5 mmol/L (-2-2) Blood Gas Oxygen Saturation 99 % (90-100) Arterial Blood pH 7.40 (7.380-7.420) Arterial Blood Partial 24 mmHg (38-42) Pressure CO2 Arterial Blood Partial 296 mmHG Pressure O2 (61-120) Arterial Blood Oxygen Content 16.0 Vol % (12.0-20.0) Arterial Blood 0.9 % (0-4) Carboxyhemoglobin Arterial Blood Methemoglobin 0.1 % (0-2) Blood Gas Hemoglobin 11.0 G/DL (12.0-16.0) Oxygen Delivery Device VENTILATOR Blood Gas Ventilator Setting AC/18/500/PEEP+5 Blood Gas Inspired Oxygen 100 % Imaging Last 24 hours Impressions Chest X-Ray 11/01/16 1112 Signed Impressions: Service Date/Time: Tuesday, November 01, 2016 11:33 - CONCLUSION: Bibasilar pneumonia. Abhijeet Domingo MD Head CT 11/01/16 0000 Signed Impressions: Service Date/Time: Tuesday, November 01, 2016 11:53 - CONCLUSION: Atrophy. No acute intracranial abnormality demonstrated. Abhijeet Domingo MD Chest X-Ray 11/01/16 0000 Signed Impressions: Service Date/Time: Tuesday, November 01, 2016 16:33 - CONCLUSION: 1. Uncomplicated line placement. No evidence of pneumothorax. 2. Satisfactory position of endotracheal tube as above. 3. Nasogastric tube coiled in the hypopharynx with its tip at the thoracic inlet 4. Cardiomegaly and findings of congestive heart failure. Anil Oconnor MD Objective Remarks GENERAL: Elderly cyanotic female malnourished sedated and intubated SKIN: Warm and dry. HEAD: Normocephalic. EYES: No scleral icterus. No injection or drainage. NECK: Supple, trachea midline. No JVD or lymphadenopathy. CARDIOVASCULAR: Regular rate and rhythm without murmurs, gallops, or rubs. RESPIRATORY: Breath sounds equal bilaterally. No accessory muscle use. GASTROINTESTINAL: Abdomen soft, non-tender, nondistended. MUSCULOSKELETAL: No cyanosis, or edema. BACK: Nontender without obvious deformity. No CVA tenderness. A/P Assessment and Plan Respiratory failure - bilateral pneumonia - Broad-spectrum antibiotics - Mechanical ventilation - Follow-up cultures - CT chest to rule out SVC syndrome negative - PHT Septic shock - Due to above - Central line - Arterial line - Monitor SVV - Aggressive IV fluid resuscitation - IV hydrocortisone Hyponatremia - Per chart chronic - Pulmonary nodule - possible malignancy - CT chest with contrast confirms nodules A.Fib with RVR - Cardizem gtt - transition to p.o. - add Dig if uncontrolled Hypothyroidism - Synthroid Hypokalemia - replacement per protocol DVT GI prophylaxis - Heparin and Pepcid Critical Care: The total critical care time was 35 minutes. Time to perform other separately billable procedures was not included in the critical care time. Isaac Spivey MD Nov 02, 2016 08:32
[2016-11-02] MEDS: BENEPROTEIN POWDER 1 PACK G-TUBE SCH ×3 (08:35→18:00)
[2016-11-02] MEDS: SODIUM CHLORIDE 0.9% FLUSH 5 ML FLUSH IV FLUSH SCH ×2 (08:36→20:47)
[2016-11-02] MEDS: ASPIRIN 81 MG CHEW TAB CHEW SCH (08:47)
[2016-11-02] MEDS: FAMOTIDINE 20 MG/2 ML VIAL IV PUSH SCH ×2 (08:47→20:47)
[2016-11-02] MEDS: POTASSIUM CHLOR 40 MEQ PREMIX 100 ML IV PRN ×2 (08:49→18:16)
[2016-11-02] MEDS ORDERED: LEVOTHYROXINE SODIUM 50 MCG TAB PO SCH (09:00)
[2016-11-02 09:22] LABS: BLOOD GAS CARBOXYHEMOGLOBIN 1.7 % (0-4); BLOOD GAS HCO3 18 mmol/L (22-26); BLOOD GAS METHEMOGLOBIN 0.9 % (0-2); BLOOD GAS O2 HGB SATURATION 96 % (90-100); BLOOD GAS OXYGEN CONTENT 18.4 Vol % (12.0-20.0); BLOOD GAS PCO2 19 mmHg (38-42); BLOOD GAS PO2 104 mmHg (61-120); BLOOD GAS TOTAL HGB 13.5 G/DL (12.0-16.0); TEMP CORR TO 98.6
[2016-11-02 09:23] LABS: CRITICAL VALUE YES; DRAW SITE LT RADIAL; FIO2 40 %; NUMBER OF ARTERIAL PUNCTURES 1; OXYGEN DEVICE VENTILATOR; STAT NO; ULNAR PULSE PRESENT; VENT SETTINGS AC18/500/PEEP5
--- NOTE | 2016-11-02 10:45 | EKG ---
Date Performed: 11/01/2016 Time Performed: 20:19:03 PTAGE: 86 years EKG: ATRIAL FIBRILLATION WITH RAPID VENTRICULAR RESPONSE LEFT ANTERIOR FASCICULAR BLOCK ST DEVIA TION AND MODERATE T-WAVE ABNORMALITY, CONSIDER LATERAL ISCHEMIA ABNORMAL ECG PREVIOUS TRACING : 11/01/2016 17.40 Compared to prior tracing no significant change DOCTOR: Juan Del Castillo Interpretating Date/Time 11/02/2016 10:43:09
--- NOTE | 2016-11-02 13:21 | RADRPT ---
EXAM DATE/TIME: 11/02/2016 12:10 [facility] COMPARISON: CHEST SINGLE AP, November 02, 2016, 5:33. INDICATIONS : Post CPR Possible rib fractures MEDICAL HISTORY : Hypertension. SURGICAL HISTORY : Cholecystectomy. Hysterectomy. ENCOUNTER: Subsequent ACUITY: 2 days PAIN SCORE: Non-responsive. LOCATION: chest FINDINGS: Single frontal view of the chest demonstrates a normal-sized cardiac silhouette. ETT, NG tube, and le ft subclavian central line remain present. There is opacity at the right lower lung zone. Atelectasis versus consolidation is present at the left lung base. No pneumothorax is visualized. There is a que stionable new right lateral fifth rib fracture. CONCLUSION: 1. Possible right lateral fifth rib fracture. 2. Persistent bibasilar pleural-parenchymal opacities likely representing pleural effusions with asso ciated volume loss and/or consolidation. The findings appear improved but given the short interval fr om the earlier study it may be secondary to patient position. Abhijeet Dillard MD on November 02, 2016 at 13:15 Board Certified Radiologist. This report was verified electronically.
--- NOTE | 2016-11-02 13:37 | EKG ---
Date Performed: 11/01/2016 Time Performed: 11:22:36 PTAGE: 86 years EKG: ATRIAL FIBRILLATION WITH RAPID VENTRICULAR RESPONSE LEFT ANTERIOR FASCICULAR BLOCK NONSPECI FIC ST & T-WAVE ABNORMALITY ABNORMAL ECG Compared to PREVIOUS TRACING , minor variation in the ST-T abnormalities. PREVIOUS TRACIN 4 00.52 DOCTOR: Juan Del Castillo Interpretating Date/Time 11/06/2016 07:54:20
--- NOTE | 2016-11-02 13:39 | EKG ---
Date Performed: 11/01/2016 Time Performed: 17:40:59 PTAGE: 86 years EKG: ATRIAL FIBRILLATION LEFT ANTERIOR FASCICULAR BLOCK MODERATE T-WAVE ABNORMALITY, CONSIDER AN TEROLATERAL ISCHEMIA ABNORMAL ECG Compared to PREVIOUS TRACING , the ventricular rate is much better controlled and the ST-T wave schmidt es are much more prominent. Clinical correlation is needed. PREVIOUS TRACIN11/01/2016 11.22 DOCTOR: Juan Del Castillo Interpretating Date/Time 11/06/2016 07:54:11
[2016-11-02] MEDS: AZITHROMYCIN INJ 500 MG in SODIUM CHLOR 0.9% 250 ML INJ 250 ML IV SCH (14:26)
--- NOTE | 2016-11-02 17:43 | RADRPT ---
EXAM DATE/TIME: 11/01/2016 17:22 [facility] COMPARISON: CHEST SINGLE AP, November 02, 2016, 12:10. CHEST SINGLE AP, November 01, 2016, 16:33. INDICATIONS : Reposition OG tube placement. MEDICAL HISTORY : Hypertension. SURGICAL HISTORY : Cholecystectomy. Hysterectomy. ENCOUNTER: Subsequent ACUITY: 1 week PAIN SCORE: Non-responsive. LOCATION: Bilateral upper chest FINDINGS: Portable AP view of the chest demonstrates stable enlargement of the cardiac silhouette. ETT, NG tube , and left subclavian central line are present. The nasogastric tube now courses beyond the GE juncti on. There is persistent consolidation and pleural effusion at the right base. There is also stable le ft basilar pleural-parenchymal opacity. No pneumothorax is visualized. CONCLUSION: 1. Nasogastric tube now courses beyond the GE junction. 2. Stable appearance to the lungs with likely bilateral pleural effusions with associated airspace co nsolidation and atelectasis in the lower lung zones. Abhijeet Dillard MD on November 02, 2016 at 17:39 Board Certified Radiologist. This report was verified electronically.
[2016-11-02] MEDS: VANCOMYCIN INJ 750 MG in SODIUM CHLOR 0.9% 250 ML INJ 250 ML IV SCH (21:12)
[2016-11-03] VITALS (20 sets, daily range): BP systolic 104–136; BP diastolic 52–80; PULSE 69–143; RESP 14–27; TEMP 97.2–98.4; O2SAT 96–100
[2016-11-03] MEDS: CHLORHEXIDINE GLUCONATE 2 % 1 PACK (2 CLOTHS) TOP SCH (03:00)
[2016-11-03] MEDS: RESP: ALBUTEROL 2.5 MG/IPRATROPIUM 0.5 MG NEB (SCH) INH ×6 (03:26→23:14)
[2016-11-03] MEDS ORDERED: DILTIAZEM HCL 25 MG/5 ML VIAL IV PUSH ONE (04:15)
[2016-11-03] MEDS: PIPERACIL-TAZO 3.375 GM PREMIX 50 ML IV SCH ×4 (04:41→20:28)
[2016-11-03] MEDS: HYDROCORTISONE SOD SUCCINATE 100 MG VIAL IV PUSH SCH ×3 (04:41→18:18)
[2016-11-03 05:10] LABS: AUTOMATED NEUTROPHIL # 10.6 TH/MM3 (1.8-7.7); BASOPHIL % 0.1 % (0.0-2.0); HEMATOCRIT 38.2 % (35.0-46.0); HEMO FLAGS DIFF FINAL; LYMPHOCYTE # 0.5 TH/MM3 (1.0-4.8); MEAN CELL VOLUME 87.7 FL (80.0-100.0); MEAN CORPUSCULAR HGB CONC 34.2 % (32.0-36.0); MONO % 3.9 % (0.0-8.0); PLATELET COUNT 111 TH/MM3 (150-450); RED BLOOD COUNT 4.36 MIL/MM3 (4.00-5.30); RED CELL DISTRIBUTION WIDTH 19.8 % (11.6-17.2); WHITE BLOOD COUNT 11.5 TH/MM3 (4.0-11.0)
[2016-11-03 05:45] LABS: BICARBONATE 23.3 MEQ/L (21.0-32.0); CALCIUM-PROTEIN CORRECTED 8.2 MG/DL (8.5-10.1); MAGNESIUM 1.6 MG/DL (1.5-2.5); POTASSIUM 3.1 MEQ/L (3.5-5.1)
[2016-11-03 05:56] LABS: BLOOD GAS BASE EXCESS -1.8 mmol/L (-2-2); BLOOD GAS CARBOXYHEMOGLOBIN 1.3 % (0-4); BLOOD GAS HCO3 20 mmol/L (22-26); BLOOD GAS METHEMOGLOBIN 0.5 % (0-2); BLOOD GAS O2 HGB SATURATION 98 % (90-100); BLOOD GAS OXYGEN CONTENT 17.3 Vol % (12.0-20.0); BLOOD GAS PCO2 22 mmHg (38-42); BLOOD GAS PO2 145 mmHG (61-120); BLOOD GAS TOTAL HGB 12.4 G/DL (12.0-16.0); TEMP CORR TO 98.6
[2016-11-03 05:57] LABS: CRITICAL VALUE YES; DRAW SITE RT RADIAL; FIO2 40 %; NUMBER OF ARTERIAL PUNCTURES 1; OXYGEN DEVICE VENTILATOR; STAT NO; ULNAR PULSE PRESENT; VENT SETTINGS AC 18/450/5PEEP
[2016-11-03] MEDS: LEVOTHYROXINE SODIUM 100 MCG TAB PO SCH (06:19)
[2016-11-03] MEDS: POTASSIUM CHLOR 20 MEQ PREMIX 100 ML IV PRN ×3 (06:19→16:01)
[2016-11-03] MEDS: HEPARIN SODIUM - SQ 10,000 UNITS/ML VIAL SQ SCH ×2 (06:19→18:18)
[2016-11-03] MEDS: PROPOFOL 1000 MG/100 ML INJ 100 ML IV SCH ×2 (06:23→15:59)
[2016-11-03] MEDS: CHLORHEXIDINE 0.12% (ORAL KIT) 15 ML CUP MT SCH ×2 (08:38→20:28)
[2016-11-03] MEDS: SODIUM CHLORIDE 0.9% FLUSH 5 ML FLUSH IV FLUSH SCH ×2 (08:41→20:28)
[2016-11-03] MEDS: FAMOTIDINE 20 MG/2 ML VIAL IV PUSH SCH ×2 (08:41→20:28)
[2016-11-03] MEDS: BENEPROTEIN POWDER 1 PACK G-TUBE SCH ×3 (08:42→18:00)
[2016-11-03] MEDS: ASPIRIN 81 MG CHEW TAB CHEW SCH (08:42)
--- NOTE | 2016-11-03 13:51 | HHI.CCPN ---
Subjective Remarks/Hospital Course 86-year-old female came for slurred speech. Her is here who is giving most of the history. He says that since yesterday morning she's been having this slurred speech. She looked short of breath as well and sats were 93% on room air, was tachycardic and hypotensive. She was intubated by ER attending and is admitted to ICU with bilateral pneumonia. Objective Vital Signs Date Time Temp Pulse Resp B/P Pulse Ox O2 Delivery O2 Flow Rate FiO2 11/03/16 11:24 98 40 11/03/16 06:00 96 11/03/16 04:00 97.8 18 118/80 11/01/16 21:01 Ventilator 11/01/16 16:12 15 Intake and Output 11/02/16 11/02/16 11/03/16 08:00 16:00 00:00 Intake Total 481 ml 661 ml 763 ml Output Total 850 ml 400 ml 250 ml Balance -369 ml 261 ml 513 ml Result Diagram: 11/03/16 0420 11/03/16 0420 Other Results Microbiology Date/Time Procedure Status Source Growth 11/01/16 11:36 Legionella Antigen - Final Complete Urine Catheterized Urine PRESUMPTIVE NEGATIVE FOR LEGIONELLA P... 11/01/16 11:36 Streptococcus pneumoniae Antigen (M - Final Complete Urine Catheterized Urine PRESUMPTIVE NEGATIVE FOR STREPTOCOCCU... Laboratory Tests Test 11/03/16 05:13 Blood Gas Puncture Site RT RADIAL Blood Gas Patient Temperature 98.6 Blood Gas HCO3 20 mmol/L (22-26) Blood Gas Base Excess -1.8 mmol/L (-2-2) Blood Gas Oxygen Saturation 98 % (90-100) Arterial Blood pH 7.57 (7.380-7.420) Arterial Blood Partial 22 mmHg (38-42) Pressure CO2 Arterial Blood Partial 145 mmHG Pressure O2 (61-120) Arterial Blood Oxygen Content 17.3 Vol % (12.0-20.0) Arterial Blood 1.3 % (0-4) Carboxyhemoglobin Arterial Blood Methemoglobin 0.5 % (0-2) Blood Gas Hemoglobin 12.4 G/DL (12.0-16.0) Oxygen Delivery Device VENTILATOR Blood Gas Ventilator Setting AC 18/450/5PEEP Blood Gas Inspired Oxygen 40 % Imaging Last 24 hours Impressions Chest X-Ray 11/01/16 1112 Signed Impressions: Service Date/Time: Tuesday, November 01, 2016 11:33 - CONCLUSION: Bibasilar pneumonia. Abhijeet Domingo MD Head CT 11/01/16 0000 Signed Impressions: Service Date/Time: Tuesday, November 01, 2016 11:53 - CONCLUSION: Atrophy. No acute intracranial abnormality demonstrated. Abhijeet Domingo MD Chest X-Ray 11/01/16 0000 Signed Impressions: Service Date/Time: Tuesday, November 01, 2016 16:33 - CONCLUSION: 1. Uncomplicated line placement. No evidence of pneumothorax. 2. Satisfactory position of endotracheal tube as above. 3. Nasogastric tube coiled in the hypopharynx with its tip at the thoracic inlet 4. Cardiomegaly and findings of congestive heart failure. Anil Oconnor MD Objective Remarks GENERAL: Elderly cyanotic female malnourished sedated and intubated SKIN: Warm and dry. HEAD: Normocephalic. EYES: No scleral icterus. No injection or drainage. NECK: Supple, trachea midline. No JVD or lymphadenopathy. CARDIOVASCULAR: Regular rate and rhythm without murmurs, gallops, or rubs. RESPIRATORY: Breath sounds equal bilaterally. No accessory muscle use. GASTROINTESTINAL: Abdomen soft, non-tender, nondistended. MUSCULOSKELETAL: No cyanosis, or edema. BACK: Nontender without obvious deformity. No CVA tenderness. A/P Assessment and Plan Respiratory failure - bilateral pneumonia - Broad-spectrum antibiotics - Mechanical ventilation - Follow-up cultures - CT chest to rule out SVC syndrome negative - PHT Septic shock - Due to above - Central line - Arterial line - Monitor SVV - IV hydrocortisone - Improved Hyponatremia - Per chart chronic - Pulmonary nodule - possible malignancy - CT chest with contrast confirms nodules - Continue normal saline A.Fib with RVR - Cardizem gtt - transition to p.o. - add Dig if uncontrolled Hypothyroidism - Synthroid Hypokalemia - replacement per protocol DVT GI prophylaxis - Heparin and Pepcid Critical Care: The total critical care time was 35 minutes. Time to perform other separately billable procedures was not included in the critical care time. Isaac Spivey MD Nov 03, 2016 13:50
[2016-11-03] MEDS: DILTIAZEM INJ 125 MG in SODIUM CHLORIDE 0.9% INJ 100 ML IV SCH ×2 (16:00→23:23)
[2016-11-03] MEDS: AZITHROMYCIN INJ 500 MG in SODIUM CHLOR 0.9% 250 ML INJ 250 ML IV SCH (16:02)
[2016-11-03] MEDS: VANCOMYCIN INJ 750 MG in SODIUM CHLOR 0.9% 250 ML INJ 250 ML IV SCH (21:36)
[2016-11-03] MEDS: fentaNYL DRIP 250 ML IV SCH (23:10)
[2016-11-04] VITALS (19 sets, daily range): BP systolic 87–151; BP diastolic 49–90; PULSE 60–160; RESP 12–21; TEMP 97.6–98.7; O2SAT 95–99
[2016-11-04] MEDS: PIPERACIL-TAZO 3.375 GM PREMIX 50 ML IV SCH ×4 (02:06→20:45)
[2016-11-04] MEDS: HYDROCORTISONE SOD SUCCINATE 100 MG VIAL IV PUSH SCH ×3 (02:06→18:19)
[2016-11-04] MEDS: CHLORHEXIDINE GLUCONATE 2 % 1 PACK (2 CLOTHS) TOP SCH (03:00)
--- NOTE | 2016-11-04 03:37 | RADRPT ---
EXAM DATE/TIME: 11/04/2016 02:43 [facility] COMPARISON: CT THORAX W CONTRAST, November 01, 2016, 18:43. CHEST SINGLE AP, November 02, 2016, 12:10. INDICATIONS : Shortness of breath, possible pulmonary disease MEDICAL HISTORY : Hypertension. SURGICAL HISTORY : Cholecystectomy. Hysterectomy. ENCOUNTER: Subsequent ACUITY: 4 - 6 days PAIN SCORE: Non-responsive. LOCATION: Bilateral chest FINDINGS: Endotracheal tube tip 2.5 cm above the umberto. Gastric tube traverses the field of view. Left subcl [place] catheter tip projects over the mid superior vena cava. There is a lesser degree of inspiration than on the prior examination with associated crowding of bronchopulmonary markings. There is persi stent consolidation left mid and lower lung with loss of delineation of the medial left hemidiaphragm . Patchy infiltrates are present in the right medial lower lung. There is a lucency projected at th e lateral aspect of the right mid lung which could represent a lateral pneumothorax, however, a defin ed pleural reflection is not seen. CONCLUSION: Equivocal findings suggesting the possibility of a small lateral right pneumothorax. Recommend perfo rming an expiratory view of the chest for further characterization. Bilateral infiltrates in the low er lungs, consolidative on the left and non-consolidative on the right. Ishan Saavedra MD on November 04, 2016 at 3:31 Board Certified Radiologist. This report was verified electronically.
[2016-11-04] MEDS: RESP: ALBUTEROL 2.5 MG/IPRATROPIUM 0.5 MG NEB (SCH) INH ×6 (03:45→23:41)
[2016-11-04 04:14] LABS: AUTOMATED NEUTROPHIL # 11.7 TH/MM3 (1.8-7.7); BASOPHIL % 0.2 % (0.0-2.0); HEMATOCRIT 37.1 % (35.0-46.0); LYMPH % 3.2 % (9.0-44.0); LYMPHOCYTE # 0.4 TH/MM3 (1.0-4.8); MEAN CELL VOLUME 90.5 FL (80.0-100.0); MEAN CORPUSCULAR HEMOGLOBIN 29.7 PG (27.0-34.0); MEAN CORPUSCULAR HGB CONC 32.9 % (32.0-36.0); MONO % 3.6 % (0.0-8.0); PLATELET COUNT 97 TH/MM3 (150-450); RED CELL DISTRIBUTION WIDTH 21.7 % (11.6-17.2); WHITE BLOOD COUNT 12.6 TH/MM3 (4.0-11.0)
[2016-11-04 04:19] LABS: HEMO FLAGS AUTO DIFF
[2016-11-04 04:45] LABS: ALT (GPT) 66 U/L (10-53); ANION GAP 8 MEQ/L (5-15); AST (GOT) 21 U/L (15-37); BLOOD UREA NITROGEN 20 MG/DL (7-18); CHLORIDE 111 MEQ/L (98-107); GLOMERULAR FILTRATION RATE 83 ML/MIN (>89); MAGNESIUM 1.9 MG/DL (1.5-2.5); POTASSIUM 4.2 MEQ/L (3.5-5.1); SODIUM (NA) 144 MEQ/L (136-145)
[2016-11-04 04:47] LABS: ALKALINE PHOSPHATASE 48 U/L (45-117); TOTAL BILIRUBIN ADULT 0.6 MG/DL (0.2-1.0)
[2016-11-04 05:12] LABS: BLOOD GAS BASE EXCESS -4.4 mmol/L (-2-2); BLOOD GAS CARBOXYHEMOGLOBIN 1.4 % (0-4); BLOOD GAS HCO3 20 mmol/L (22-26); BLOOD GAS O2 HGB SATURATION 97 % (90-100); BLOOD GAS OXYGEN CONTENT 16.8 Vol % (12.0-20.0); BLOOD GAS PCO2 39 mmHg (38-42); BLOOD GAS PO2 140 mmHg (61-120); BLOOD GAS TOTAL HGB 12.2 G/DL (12.0-16.0); TEMP CORR TO 98.6
[2016-11-04 05:13] LABS: CRITICAL VALUE NO; DRAW SITE RT RADIAL; FIO2 40 %; NUMBER OF ARTERIAL PUNCTURES 1; OXYGEN DEVICE VENTILATOR; STAT NO; ULNAR PULSE PRESENT; VENT SETTINGS AC/12/370/PEEP 5
[2016-11-04] MEDS: HEPARIN SODIUM - SQ 10,000 UNITS/ML VIAL SQ SCH ×2 (05:36→18:19)
[2016-11-04] MEDS: LEVOTHYROXINE SODIUM 100 MCG TAB PO SCH (05:36)
[2016-11-04] MEDS ORDERED: SODIUM CHLOR 0.9% 1000 ML INJ 1,000 ML IV ONE ×2 (08:15)
[2016-11-04] MEDS: CHLORHEXIDINE 0.12% (ORAL KIT) 15 ML CUP MT SCH ×2 (08:18→20:00)
[2016-11-04] MEDS: ASPIRIN 81 MG CHEW TAB CHEW SCH (08:18)
[2016-11-04] MEDS: SODIUM CHLOR 0.9% 1000 ML INJ 1,000 ML IV SCH ×2 (08:18→08:45)
[2016-11-04] MEDS: BENEPROTEIN POWDER 1 PACK G-TUBE SCH ×3 (08:18→18:00)
[2016-11-04] MEDS: SODIUM CHLORIDE 0.9% FLUSH 5 ML FLUSH IV FLUSH SCH ×2 (08:18→20:45)
[2016-11-04] MEDS: FAMOTIDINE 20 MG/2 ML VIAL IV PUSH SCH ×2 (08:19→20:44)
[2016-11-04 09:53] LABS: BANDS 15 % (0-6); METAMYELOCYTES 1 % (0-1); NEUTROPHIL # MANUAL DIFF 11.8 TH/MM3 (1.8-7.7); POLYS (SEG NEUTROPHILS) 78 % (16-70); WBC DIFF SAMPLE 100
[2016-11-04 09:54] LABS: PLATELET ESTIMATE SMEAR LOW (NORMAL); PLATELET MORPHOLOGY NORMAL (NORMAL); SCAN/DIFF FINAL DIFF MANUAL
[2016-11-04] MEDS ORDERED: DIGOXIN 0.5 MG/2 ML VIAL IV PUSH ONE (10:30)
[2016-11-04] MEDS: PROPOFOL 1000 MG/100 ML INJ 100 ML IV SCH ×2 (10:43→19:31)
[2016-11-04] MEDS ORDERED: ALBUMIN HUMAN 5% 25 GM/500 ML BOTTLE IV ONE (12:00)
--- NOTE | 2016-11-04 12:48 | HHI.CCPN ---
Subjective Remarks/Hospital Course 86-year-old female came for slurred speech. Her is here who is giving most of the history. He says that since yesterday morning she's been having this slurred speech. She looked short of breath as well and sats were 93% on room air, was tachycardic and hypotensive. She was intubated by ER attending and is admitted to ICU with bilateral pneumonia. Objective Vital Signs Date Time Temp Pulse Resp B/P Pulse Ox O2 Delivery O2 Flow Rate FiO2 11/04/16 11:58 97 40 11/04/16 10:00 133 11/04/16 08:00 98.6 21 151/90 11/01/16 21:01 Ventilator 11/01/16 16:12 15 Intake and Output 11/03/16 11/03/16 11/04/16 08:00 16:00 00:00 Intake Total 575 ml 623 ml 927 ml Output Total 250 ml 250 ml 150.0 ml Balance 325 ml 373 ml 777.0 ml Result Diagram: 11/04/16 0330 11/04/16 0330 Other Results Laboratory Tests Test 11/04/16 04:58 Blood Gas Puncture Site RT RADIAL Blood Gas Patient Temperature 98.6 Blood Gas HCO3 20 mmol/L (22-26) Blood Gas Base Excess -4.4 mmol/L (-2-2) Blood Gas Oxygen Saturation 97 % (90-100) Arterial Blood pH 7.34 (7.380-7.420) Arterial Blood Partial 39 mmHg (38-42) Pressure CO2 Arterial Blood Partial 140 mmHg Pressure O2 (61-120) Arterial Blood Oxygen Content 16.8 Vol % (12.0-20.0) Arterial Blood 1.4 % (0-4) Carboxyhemoglobin Arterial Blood Methemoglobin 1.0 % (0-2) Blood Gas Hemoglobin 12.2 G/DL (12.0-16.0) Oxygen Delivery Device VENTILATOR Blood Gas Ventilator Setting AC/12/370/PEEP 5 Blood Gas Inspired Oxygen 40 % Imaging Last 24 hours Impressions Chest X-Ray 11/01/16 1112 Signed Impressions: Service Date/Time: Tuesday, November 01, 2016 11:33 - CONCLUSION: Bibasilar pneumonia. Abhijeet Domingo MD Head CT 11/01/16 0000 Signed Impressions: Service Date/Time: Tuesday, November 01, 2016 11:53 - CONCLUSION: Atrophy. No acute intracranial abnormality demonstrated. Abhijeet Domingo MD Chest X-Ray 11/01/16 0000 Signed Impressions: Service Date/Time: Tuesday, November 01, 2016 16:33 - CONCLUSION: 1. Uncomplicated line placement. No evidence of pneumothorax. 2. Satisfactory position of endotracheal tube as above. 3. Nasogastric tube coiled in the hypopharynx with its tip at the thoracic inlet 4. Cardiomegaly and findings of congestive heart failure. Anil Oconnor MD Objective Remarks GENERAL: Elderly cyanotic female malnourished sedated and intubated SKIN: Warm and dry. HEAD: Normocephalic. EYES: No scleral icterus. No injection or drainage. NECK: Supple, trachea midline. No JVD or lymphadenopathy. CARDIOVASCULAR: Regular rate and rhythm without murmurs, gallops, or rubs. RESPIRATORY: Breath sounds equal bilaterally. No accessory muscle use. GASTROINTESTINAL: Abdomen soft, non-tender, nondistended. MUSCULOSKELETAL: No cyanosis, or edema. BACK: Nontender without obvious deformity. No CVA tenderness. A/P Assessment and Plan Respiratory failure - bilateral pneumonia - Broad-spectrum antibiotics - Mechanical ventilation - Follow-up cultures- No growth in 3 days - PHT Septic shock - Due to above - Central line - Arterial line - Monitor SVV - IV hydrocortisone - Improved - now normotensive Hyponatremia - Per chart chronic - Pulmonary nodule - possible malignancy - CT chest with contrast confirms nodules - Continue normal saline A.Fib with RVR - Cardizem gtt - transition to p.o. - add Dig without improvement Hypothyroidism - Synthroid Hypokalemia - replacement per protocol DVT GI prophylaxis - Heparin and Pepcid Critical Care: The total critical care time was 35 minutes. Time to perform other separately billable procedures was not included in the critical care time. Isaac Spivey MD Nov 04, 2016 12:48
--- NOTE | 2016-11-04 13:27 | RADRPT ---
EXAM DATE/TIME: 11/04/2016 12:57 [facility] COMPARISON: CHEST SINGLE AP, November 04, 2016, 2:43. INDICATIONS : Evaluate for Pneumothorax. MEDICAL HISTORY : Hypertension. SURGICAL HISTORY : Cholecystectomy. Hysterectomy. ENCOUNTER: Subsequent ACUITY: 4 - 6 days PAIN SCORE: Non-responsive. LOCATION: Bilateral chest FINDINGS: The patient is intubated with tip of ET tube approximately 2 cm from the umberto. An NG tube is in pl natalie with its tip directed into the stomach. There is a right subclavian line in place with its tip o verlying the SVC. The heart size is within normal limits. There is increased density seen at the ba ses bilaterally being worse on the right. There is some silhouetting of the right hemidiaphragm. A pneumothorax is not seen. CONCLUSION: 1. Bibasilar areas of consolidation or atelectasis being worse on the right. Some degree of right e ffusion cannot be excluded. 2. Tubes and lines in good position. Abhijeet Mantilla MD on November 04, 2016 at 13:20 Board Certified Radiologist. This report was verified electronically.
[2016-11-04] MEDS: AMIODARONE INJ 450 MG in DEXTROSE 5% IN WATE(EXCEL) INJ 241 ML IV SCH ×4 (13:28→19:31)
[2016-11-04 16:14] LABS: BLOOD GAS BASE EXCESS -5.8 mmol/L (-2-2); BLOOD GAS CARBOXYHEMOGLOBIN 1.5 % (0-4); BLOOD GAS HCO3 21 mmol/L (22-26); BLOOD GAS METHEMOGLOBIN 1.1 % (0-2); BLOOD GAS O2 HGB SATURATION 96 % (90-100); BLOOD GAS OXYGEN CONTENT 14.3 Vol % (12.0-20.0); BLOOD GAS PCO2 54 mmHg (38-42); BLOOD GAS PO2 120 mmHg (61-120); BLOOD GAS TOTAL HGB 10.4 G/DL (12.0-16.0); CRITICAL VALUE YES; OXYGEN DEVICE VENTILATOR; TEMP CORR TO 98.6; VENT SETTINGS A/C12/370/PEEP5
[2016-11-04 16:15] LABS: DRAW SITE RT RADIAL; FIO2 40 %; NUMBER OF ARTERIAL PUNCTURES 1; STAT YES
[2016-11-04] MEDS: AZITHROMYCIN INJ 500 MG in SODIUM CHLOR 0.9% 250 ML INJ 250 ML IV SCH (16:22)
[2016-11-04] MEDS ORDERED: SODIUM BICARBONATE 8.4% INJ 50 ML ONE (16:29)
[2016-11-04] MEDS ORDERED: SODIUM BICARBONATE 8.4% INJ 50 MEQ/50 ML SYR IV PUSH ONE (16:45)
[2016-11-04] MEDS: SODIUM BICARBONATE 8.4% INJ 150 MEQ in DEXTROSE 5% IN WATE 1000ML INJ 1,000 ML IV SCH ×2 (18:19)
[2016-11-04] MEDS: fentaNYL DRIP 250 ML IV SCH (19:32)
[2016-11-04] MEDS: VANCOMYCIN INJ 750 MG in SODIUM CHLOR 0.9% 250 ML INJ 250 ML IV SCH (20:44)
[2016-11-04] MEDS ORDERED: PHARMACY ORDERED LAB XX ONE (20:45)
[2016-11-05] VITALS (23 sets, daily range): BP systolic 96–137; BP diastolic 56–84; PULSE 97–150; RESP 10–12; TEMP 97.7–99; O2SAT 94–100
[2016-11-05] MEDS: HYDROCORTISONE SOD SUCCINATE 100 MG VIAL IV PUSH SCH ×3 (03:06→17:08)
[2016-11-05] MEDS: SODIUM BICARBONATE 8.4% INJ 150 MEQ in DEXTROSE 5% IN WATE 1000ML INJ 1,000 ML IV SCH ×4 (03:06→17:11)
[2016-11-05] MEDS: PIPERACIL-TAZO 3.375 GM PREMIX 50 ML IV SCH ×4 (03:06→19:52)
[2016-11-05] MEDS: CHLORHEXIDINE GLUCONATE 2 % 1 PACK (2 CLOTHS) TOP SCH (03:07)
[2016-11-05] MEDS: RESP: ALBUTEROL 2.5 MG/IPRATROPIUM 0.5 MG NEB (SCH) INH ×4 (03:35→16:53)
[2016-11-05 04:08] LABS: AUTOMATED NEUTROPHIL # 10.2 TH/MM3 (1.8-7.7); BASOPHIL % 0.4 % (0.0-2.0); HEMATOCRIT 34.4 % (35.0-46.0); LYMPHOCYTE # 0.2 TH/MM3 (1.0-4.8); MEAN CELL VOLUME 91.3 FL (80.0-100.0); MEAN CORPUSCULAR HEMOGLOBIN 29.9 PG (27.0-34.0); MEAN CORPUSCULAR HGB CONC 32.7 % (32.0-36.0); MONO % 3.9 % (0.0-8.0); NEUT % 93.7 % (16.0-70.0); PLATELET COUNT 85 TH/MM3 (150-450); RED BLOOD COUNT 3.77 MIL/MM3 (4.00-5.30); RED CELL DISTRIBUTION WIDTH 21.5 % (11.6-17.2); WHITE BLOOD COUNT 10.9 TH/MM3 (4.0-11.0)
[2016-11-05 04:13] LABS: HEMO FLAGS DIFF FINAL
[2016-11-05 04:37] LABS: BICARBONATE 30.3 MEQ/L (21.0-32.0); CALCIUM-PROTEIN CORRECTED 8.3 MG/DL (8.5-10.1); MAGNESIUM 1.9 MG/DL (1.5-2.5); POTASSIUM 3.5 MEQ/L (3.5-5.1); TOTAL BILIRUBIN ADULT 0.6 MG/DL (0.2-1.0)
[2016-11-05 05:26] LABS: BLOOD GAS BASE EXCESS 1.7 mmol/L (-2-2); BLOOD GAS CARBOXYHEMOGLOBIN 1.7 % (0-4); BLOOD GAS HCO3 28 mmol/L (22-26); BLOOD GAS METHEMOGLOBIN 1.1 % (0-2); BLOOD GAS O2 HGB SATURATION 88 % (90-100); BLOOD GAS OXYGEN CONTENT 13.6 Vol % (12.0-20.0); BLOOD GAS PCO2 62 mmHg (38-42); BLOOD GAS PO2 61 mmHg (61-120); TEMP CORR TO 98.6
[2016-11-05 05:27] LABS: CRITICAL VALUE YES; DRAW SITE RT RADIAL; FIO2 40 %; NUMBER OF ARTERIAL PUNCTURES 1; OXYGEN DEVICE VENTILATOR; ULNAR PULSE PRESENT; VENT SETTINGS AC12/370/PEEP5
[2016-11-05 05:28] LABS: STAT NO
[2016-11-05] MEDS: LEVOTHYROXINE SODIUM 100 MCG TAB PO SCH (05:39)
[2016-11-05] MEDS: HEPARIN SODIUM - SQ 10,000 UNITS/ML VIAL SQ SCH ×2 (05:39→17:10)
[2016-11-05] MEDS: PROPOFOL 1000 MG/100 ML INJ 100 ML IV SCH ×2 (05:45→19:52)
--- NOTE | 2016-11-05 06:51 | RADRPT ---
EXAM DATE/TIME: 11/05/2016 05:09 [facility] COMPARISON: CHEST SINGLE AP, November 04, 2016, 12:57. INDICATIONS : Shortness of breath, possible pulmonary disease. MEDICAL HISTORY : Hypertension. SURGICAL HISTORY : Cholecystectomy. Hysterectomy. ENCOUNTER: Subsequent ACUITY: 1 week PAIN SCORE: Non-responsive. LOCATION: Bilateral chest FINDINGS: Endotracheal tube tip is obscured by the overlying gastric tube. There are increasing consolidative infiltrates in the left mid and lower lung and persistent patchy infiltrates in the right mid and low er lung. Left subclavian catheter tip projects at the cavoatrial junction. CONCLUSION: 1. Increasing consolidation left mid and lower lung and persistent non-consolidative infiltrates in t he right lower lung. 2. The location of the tip of the endotracheal tube cannot be stated with certainty due to superimpos ition of the gastric tube. Ishan Saavedra MD on November 05, 2016 at 6:48 Board Certified Radiologist. This report was verified electronically.
[2016-11-05] MEDS: SODIUM CHLORIDE 0.9% FLUSH 5 ML FLUSH IV FLUSH SCH ×2 (07:57→19:52)
[2016-11-05] MEDS: CHLORHEXIDINE 0.12% (ORAL KIT) 15 ML CUP MT SCH ×2 (07:57→19:52)
[2016-11-05] MEDS: BENEPROTEIN POWDER 1 PACK G-TUBE SCH ×3 (07:57→18:00)
[2016-11-05] MEDS: FAMOTIDINE 20 MG/2 ML VIAL IV PUSH SCH ×2 (07:57→19:52)
[2016-11-05] MEDS: ASPIRIN 81 MG CHEW TAB CHEW SCH (07:57)
[2016-11-05] MEDS: POTASSIUM CHLOR 20 MEQ PREMIX 100 ML IV PRN (08:08)
[2016-11-05] MEDS: VANCOMYCIN 1,000 MG/NS 250 ML IV SCH ×2 (11:34)
[2016-11-05] MEDS ORDERED: DILTIAZEM HCL 25 MG/5 ML VIAL ONE (12:18)
[2016-11-05] MEDS ORDERED: LORazepam 2 MG/ML VIAL ONE (12:18)
--- NOTE | 2016-11-05 12:53 | HHI.CCPN ---
Subjective Remarks/Hospital Course 86-year-old female came for slurred speech. Her significant other present in the emergency department giving most of the history. He says that since yesterday morning she's been having this slurred speech. She looked short of breath as well and sats were 93% on room air, was tachycardic and hypotensive. She was intubated by ER attending and is admitted to ICU with bilateral pneumonia. Objective Vital Signs Date Time Temp Pulse Resp B/P Pulse Ox O2 Delivery O2 Flow Rate FiO2 11/05/16 12:30 94 40 11/05/16 10:00 116 11/05/16 08:00 97.7 12 96/56 11/01/16 21:01 Ventilator 11/01/16 16:12 15 Intake and Output 11/04/16 11/04/16 11/05/16 08:00 16:00 00:00 Intake Total 821 ml 2988 ml 1610 ml Output Total 150.0 ml 350 ml 300 ml Balance 671.0 ml 2638 ml 1310 ml Result Diagram: 11/05/16 0330 11/05/16 0330 Other Results Laboratory Tests Test 11/04/16 11/05/16 16:04 04:13 Blood Gas Puncture Site RT RADIAL RT RADIAL Blood Gas Patient Temperature 98.6 98.6 Blood Gas HCO3 21 mmol/L 28 mmol/L (22-26) (22-26) Blood Gas Base Excess -5.8 mmol/L 1.7 mmol/L (-2-2) (-2-2) Blood Gas Oxygen Saturation 96 % (90-100) 88 % (90-100) Arterial Blood pH 7.21 7.27 (7.380-7.420) (7.380-7.420) Arterial Blood Partial 54 mmHg (38-42) 62 mmHg (38-42) Pressure CO2 Arterial Blood Partial 120 mmHg 61 mmHg Pressure O2 (61-120) (61-120) Arterial Blood Oxygen Content 14.3 Vol % 13.6 Vol % (12.0-20.0) (12.0-20.0) Arterial Blood 1.5 % (0-4) 1.7 % (0-4) Carboxyhemoglobin Arterial Blood Methemoglobin 1.1 % (0-2) 1.1 % (0-2) Blood Gas Hemoglobin 10.4 G/DL 11.0 G/DL (12.0-16.0) (12.0-16.0) Oxygen Delivery Device VENTILATOR VENTILATOR Blood Gas Ventilator Setting A/C12/370/PEEP5 AC12/370/PEEP5 Blood Gas Inspired Oxygen 40 % 40 % Imaging Last 24 hours Impressions Chest X-Ray 11/01/16 1112 Signed Impressions: Service Date/Time: Tuesday, November 01, 2016 11:33 - CONCLUSION: Bibasilar pneumonia. Abhijeet Domingo MD Head CT 11/01/16 0000 Signed Impressions: Service Date/Time: Tuesday, November 01, 2016 11:53 - CONCLUSION: Atrophy. No acute intracranial abnormality demonstrated. Abhijeet Domingo MD Chest X-Ray 11/01/16 0000 Signed Impressions: Service Date/Time: Tuesday, November 01, 2016 16:33 - CONCLUSION: 1. Uncomplicated line placement. No evidence of pneumothorax. 2. Satisfactory position of endotracheal tube as above. 3. Nasogastric tube coiled in the hypopharynx with its tip at the thoracic inlet 4. Cardiomegaly and findings of congestive heart failure. Anil Oconnor MD Objective Remarks GENERAL: Elderly cyanotic female malnourished sedated and intubated SKIN: Warm and dry. HEAD: Normocephalic. EYES: No scleral icterus. No injection or drainage. NECK: Supple, trachea midline. No JVD or lymphadenopathy. CARDIOVASCULAR: Regular rate and rhythm without murmurs, gallops, or rubs. RESPIRATORY: Breath sounds equal bilaterally. No accessory muscle use. GASTROINTESTINAL: Abdomen soft, non-tender, nondistended. MUSCULOSKELETAL: No cyanosis, or edema. BACK: Nontender without obvious deformity. No CVA tenderness. A/P Assessment and Plan Respiratory failure - bilateral pneumonia - Broad-spectrum antibiotics - Mechanical ventilation - Follow-up cultures- No growth in 3 days - Pulmonary hypertension - CPAP trial today Septic shock - Due to above - Central line - Arterial line - IV hydrocortisone - DC'd today - hemodynamically improved Hyponatremia - Per chart chronic - Pulmonary nodule - possible malignancy - CT chest with contrast confirms nodules - Continue normal saline A.Fib with RVR - Cardizem gtt off - Amiodarone drip -1 time Dig without improvement Hypothyroidism - Synthroid Hypokalemia - replacement per protocol DVT GI prophylaxis - Heparin and Pepcid Critical Care: The total critical care time was 35 minutes. Time to perform other separately billable procedures was not included in the critical care time. Isaac Spivey MD Nov 05, 2016 12:53
[2016-11-05] MEDS ORDERED: DILTIAZEM HCL 25 MG/5 ML VIAL IV ONE (14:00)
[2016-11-05] MEDS ORDERED: LORazepam 2 MG/ML VIAL IV ONE (14:00)
[2016-11-05] MEDS ORDERED: METOPROLOL TARTRATE 5 MG/5 ML VIAL ONE (14:54)
[2016-11-05 15:45] LABS: BLOOD GAS BASE EXCESS 4.6 mmol/L (-2-2); BLOOD GAS HCO3 28 mmol/L (22-26); BLOOD GAS METHEMOGLOBIN 0.9 % (0-2); BLOOD GAS O2 HGB SATURATION 94 % (90-100); BLOOD GAS PCO2 35 mmHg (38-42); BLOOD GAS PO2 69 mmHg (61-120); BLOOD GAS TOTAL HGB 12.1 G/DL (12.0-16.0); CRITICAL VALUE YES; DRAW SITE RT BRACHIAL; FIO2 40 %; NUMBER OF ARTERIAL PUNCTURES 1; OXYGEN DEVICE VENTILATOR; STAT NO; TEMP CORR TO 98.6; VENT SETTINGS CPAPPEEP5/PS10
[2016-11-05] MEDS ORDERED: ETOMIDATE 20 MG/10 ML VIAL ONE (16:14)
[2016-11-05] MEDS: FUROSEMIDE 20 MG/2 ML VIAL IV PUSH SCH ×2 (17:10→22:45)
[2016-11-05] MEDS: AZITHROMYCIN INJ 500 MG in SODIUM CHLOR 0.9% 250 ML INJ 250 ML IV SCH (17:11)
[2016-11-05] MEDS ORDERED: METOPROLOL TARTRATE 5 MG/5 ML VIAL IV PUSH ONE (17:15)
[2016-11-05] MEDS: fentaNYL DRIP 250 ML IV SCH (19:52)
--- NOTE | 2016-11-05 21:26 | EKG ---
Date Performed: 11/04/2016 Time Performed: 12:53:44 PTAGE: 86 years EKG: Atrial flutter with 2:1 A-V block. Poor borderline left axis deviation. Diffused nonspecif ic ST-T changed Low limb lead voltage. Since previous tracing 11/01/2016, the rhythm has changed from a trial fibrillation to atrial flutter. Abnormal ECG PREVIOUS TRACING : 11/01/2016 20.19 DOCTOR: Maury Monson Interpretating Date/Time 11/05/2016 21:25:08
[2016-11-06] VITALS (19 sets, daily range): BP systolic 94–134; BP diastolic 54–75; PULSE 67–87; RESP 12; TEMP 98–100.5; O2SAT 93–99
[2016-11-06] MEDS: PIPERACIL-TAZO 3.375 GM PREMIX 50 ML IV SCH ×4 (01:37→19:20)
[2016-11-06] MEDS: HYDROCORTISONE SOD SUCCINATE 100 MG VIAL IV PUSH SCH ×3 (01:37→17:27)
[2016-11-06] MEDS: CHLORHEXIDINE GLUCONATE 2 % 1 PACK (2 CLOTHS) TOP SCH (02:42)
[2016-11-06] MEDS: SODIUM BICARBONATE 8.4% INJ 150 MEQ in DEXTROSE 5% IN WATE 1000ML INJ 1,000 ML IV SCH ×4 (02:42→14:43)
[2016-11-06] MEDS: AMIODARONE INJ 450 MG in DEXTROSE 5% IN WATE(EXCEL) INJ 241 ML IV SCH ×4 (02:42→22:30)
[2016-11-06] MEDS: PROPOFOL 1000 MG/100 ML INJ 100 ML IV SCH ×2 (04:04→17:31)
[2016-11-06] MEDS: FUROSEMIDE 20 MG/2 ML VIAL IV PUSH SCH ×4 (04:04→22:29)
[2016-11-06] MEDS: HEPARIN SODIUM - SQ 10,000 UNITS/ML VIAL SQ SCH ×2 (04:04→17:28)
--- NOTE | 2016-11-06 04:15 | RADRPT ---
EXAM DATE/TIME: 11/06/2016 01:53 [facility] COMPARISON: CHEST SINGLE AP, November 05, 2016, 5:09. INDICATIONS : Shortness of breath, possible pulmonary disease. MEDICAL HISTORY : Hypertension. SURGICAL HISTORY : Cholecystectomy. Hysterectomy. ENCOUNTER: Subsequent ACUITY: 1 week PAIN SCORE: Non-responsive. LOCATION: Bilateral chest FINDINGS: Single AP view of the chest. Endotracheal tube, left subclavian central venous catheter, and nasogast edie tube remain in place. Persistent cardiac silhouette enlargement. Persistent bilateral mid to lowe r lung zone parenchymal opacity. Bilateral pleural effusions. No significant change. CONCLUSION: No significant interval change in persistent bilateral mid to lower lung zone parenchymal opacity and bilateral pleural effusions. Persistent cardiac silhouette enlargement. Jamaal Wallis MD on November 06, 2016 at 4:12 Board Certified Radiologist. This report was verified electronically.
[2016-11-06 04:25] LABS: BASOPHIL % 0.1 % (0.0-2.0); HEMATOCRIT 30.4 % (35.0-46.0); LYMPH % 5.1 % (9.0-44.0); LYMPHOCYTE # 0.5 TH/MM3 (1.0-4.8); MEAN CORPUSCULAR HEMOGLOBIN 30.4 PG (27.0-34.0); MEAN CORPUSCULAR HGB CONC 34.1 % (32.0-36.0); MONO % 5.4 % (0.0-8.0); NEUT % 89.4 % (16.0-70.0); PLATELET COUNT 85 TH/MM3 (150-450); RED BLOOD COUNT 3.41 MIL/MM3 (4.00-5.30); RED CELL DISTRIBUTION WIDTH 20.7 % (11.6-17.2); WHITE BLOOD COUNT 8.9 TH/MM3 (4.0-11.0)
[2016-11-06 04:32] LABS: HEMO FLAGS AUTO DIFF
[2016-11-06 04:52] LABS: BICARBONATE 35.2 MEQ/L (21.0-32.0); CALCIUM-PROTEIN CORRECTED 8.4 MG/DL (8.5-10.1); MAGNESIUM 1.8 MG/DL (1.5-2.5); TOTAL BILIRUBIN ADULT 0.7 MG/DL (0.2-1.0)
[2016-11-06] MEDS: LEVOTHYROXINE SODIUM 100 MCG TAB PO SCH (05:15)
[2016-11-06] MEDS: VANCOMYCIN 1,000 MG/NS 250 ML IV SCH ×4 (05:15→23:09)
[2016-11-06 06:18] LABS: BLOOD GAS BASE EXCESS 9.9 mmol/L (-2-2); BLOOD GAS CARBOXYHEMOGLOBIN 1.8 % (0-4); BLOOD GAS HCO3 34 mmol/L (22-26); BLOOD GAS O2 HGB SATURATION 96 % (90-100); BLOOD GAS OXYGEN CONTENT 14.6 Vol % (12.0-20.0); BLOOD GAS PCO2 43 mmHg (38-42); BLOOD GAS PO2 100 mmHg (61-120); BLOOD GAS TOTAL HGB 10.7 G/DL (12.0-16.0); TEMP CORR TO 98.6
[2016-11-06 06:19] LABS: CRITICAL VALUE YES; OXYGEN DEVICE VENTILATOR
[2016-11-06 06:20] LABS: DRAW SITE RT RADIAL; FIO2 40 %; NUMBER OF ARTERIAL PUNCTURES 2; STAT NO; ULNAR PULSE PRESENT
[2016-11-06 06:34] LABS: BANDS 18 % (0-6); METAMYELOCYTES 1 % (0-1); NEUTROPHIL # MANUAL DIFF 8.1 TH/MM3 (1.8-7.7); PLATELET ESTIMATE SMEAR LOW (NORMAL); PLATELET MORPHOLOGY NORMAL (NORMAL); POLYS (SEG NEUTROPHILS) 72 % (16-70); SCAN/DIFF FINAL DIFF MANUAL; WBC DIFF SAMPLE 100
[2016-11-06] MEDS: CHLORHEXIDINE 0.12% (ORAL KIT) 15 ML CUP MT SCH ×2 (08:00→19:21)
[2016-11-06] MEDS: BENEPROTEIN POWDER 1 PACK G-TUBE SCH ×3 (09:00→17:28)
[2016-11-06] MEDS: SODIUM CHLORIDE 0.9% FLUSH 5 ML FLUSH IV FLUSH SCH ×2 (09:00→19:19)
[2016-11-06] MEDS: FAMOTIDINE 20 MG/2 ML VIAL IV PUSH SCH ×2 (09:35→19:19)
[2016-11-06] MEDS: ASPIRIN 81 MG CHEW TAB CHEW SCH (09:36)
[2016-11-06] MEDS: fentaNYL DRIP 250 ML IV SCH (12:08)
[2016-11-06] MEDS: AZITHROMYCIN INJ 500 MG in SODIUM CHLOR 0.9% 250 ML INJ 250 ML IV SCH (14:43)
--- NOTE | 2016-11-06 15:06 | HHI.CCPN ---
Subjective Remarks/Hospital Course 86-year-old female came for slurred speech. Her significant other present in the emergency department giving most of the history. He says that since yesterday morning she's been having this slurred speech. She looked short of breath as well and sats were 93% on room air, was tachycardic and hypotensive. She was intubated by ER attending and is admitted to ICU with bilateral pneumonia. Subjective: 11/06: The patient's bicarbonate level was noted to be elevated. Sodium bicarbonate infusion discontinued. Patient was noted to have level low potassium level which were repleted today Objective Vital Signs Date Time Temp Pulse Resp B/P Pulse Ox O2 Delivery O2 Flow Rate FiO2 11/06/16 14:00 67 11/06/16 12:00 40 11/06/16 12:00 98.5 12 96/59 98 11/05/16 15:51 Non-Rebreather 15 Intake and Output 11/05/16 11/05/16 11/06/16 08:00 16:00 00:00 Intake Total 1285 ml 3364 ml Output Total 250.0 ml 600 ml Balance 1035.0 ml 2764 ml Result Diagram: 11/06/16 0400 11/06/16 0400 Other Results Laboratory Tests Test 11/05/16 11/06/16 15:34 06:08 Blood Gas Puncture Site RT BRACHIAL RT RADIAL Blood Gas Patient Temperature 98.6 98.6 Blood Gas HCO3 28 mmol/L 34 mmol/L (22-26) (22-26) Blood Gas Base Excess 4.6 mmol/L 9.9 mmol/L (-2-2) (-2-2) Blood Gas Oxygen Saturation 94 % (90-100) 96 % (90-100) Arterial Blood pH 7.51 7.51 (7.380-7.420) (7.380-7.420) Arterial Blood Partial 35 mmHg (38-42) 43 mmHg (38-42) Pressure CO2 Arterial Blood Partial 69 mmHg 100 mmHg Pressure O2 (61-120) (61-120) Arterial Blood Oxygen Content 16.0 Vol % 14.6 Vol % (12.0-20.0) (12.0-20.0) Arterial Blood 2.0 % (0-4) 1.8 % (0-4) Carboxyhemoglobin Arterial Blood Methemoglobin 0.9 % (0-2) 1.0 % (0-2) Blood Gas Hemoglobin 12.1 G/DL 10.7 G/DL (12.0-16.0) (12.0-16.0) Oxygen Delivery Device VENTILATOR VENTILATOR Blood Gas Ventilator Setting CPAPPEEP5/PS10 AC12/5600/PEEP5 Blood Gas Inspired Oxygen 40 % 40 % Imaging Last 24 hours Impressions Chest X-Ray 11/01/16 1112 Signed Impressions: Service Date/Time: Tuesday, November 01, 2016 11:33 - CONCLUSION: Bibasilar pneumonia. Abhijeet Domingo MD Head CT 11/01/16 0000 Signed Impressions: Service Date/Time: Tuesday, November 01, 2016 11:53 - CONCLUSION: Atrophy. No acute intracranial abnormality demonstrated. Abhijeet Domingo MD Chest X-Ray 11/01/16 0000 Signed Impressions: Service Date/Time: Tuesday, November 01, 2016 16:33 - CONCLUSION: 1. Uncomplicated line placement. No evidence of pneumothorax. 2. Satisfactory position of endotracheal tube as above. 3. Nasogastric tube coiled in the hypopharynx with its tip at the thoracic inlet 4. Cardiomegaly and findings of congestive heart failure. Anil Oconnor MD Objective Remarks GENERAL: Elderly cyanotic female malnourished sedated and intubated SKIN: Warm and dry. HEAD: Normocephalic. EYES: No scleral icterus. No injection or drainage. NECK: Supple, trachea midline. No JVD or lymphadenopathy. CARDIOVASCULAR: Regular rate and rhythm without murmurs, gallops, or rubs. RESPIRATORY: Breath sounds equal bilaterally. No accessory muscle use. GASTROINTESTINAL: Abdomen soft, non-tender, nondistended. MUSCULOSKELETAL: No cyanosis, or edema. BACK: Nontender without obvious deformity. No CVA tenderness. Urinary Catheter: Yes A/P Assessment and Plan Respiratory failure - bilateral pneumonia - Broad-spectrum antibiotics - Mechanical ventilation - Follow-up cultures- NGTD - Pulmonary hypertension - Daily sedation vacation w/ CPAP trial -CXR 11/06 B/L pleural effusions Septic shock - Due to above - Central line - Arterial line - IV hydrocortisone weaned to 50mg q 8 hour - No vasopressor support ,hemodynamically improved Chronic Hyponatremia - Pulmonary nodule - possible malignancy - CT chest with contrast confirms nodules - Hep-Lock IV, NaHCO3 infusion dc'd A.Fib with RVR - Cardizem gtt off - Amiodarone drip dc'd 11/06 early am -1 time Dig without improvement Hypothyroidism - Synthroid Hypokalemia - replacement per protocol DVT GI prophylaxis - Heparin and Pepcid Critical Care: my billing statement This patient remains critically ill with one or more organ systems which are or may become a threat to life. I have spent in excess of 47 minutes discontinuously in the care and management of this patient. This time is exclusive of procedures, and includes, but is not limited to, evaluation of the patient, review of the medical record, discussions with family, consultants, nursing staff, or respiratory therapy, and documentation in the medical record. Physician Clarisse Chavira MD Nov 06, 2016 15:06
[2016-11-06] MEDS: POTASSIUM CHLOR 40 MEQ PREMIX 100 ML IV PRN ×3 (15:17→17:30)
[2016-11-06] MEDS ORDERED: RESP: ALBUTEROL 2.5 MG/IPRATROPIUM 0.5 MG NEB (PRN) NEB (16:15)
[2016-11-06] MEDS: RESP: ALBUTEROL 2.5 MG/IPRATROPIUM 0.5 MG NEB (SCH) NEB (20:21)
[2016-11-07] VITALS (20 sets, daily range): BP systolic 95–161; BP diastolic 60–96; PULSE 70–110; RESP 12–19; TEMP 97.5–100.1; O2SAT 93–98
[2016-11-07] MEDS: HYDROCORTISONE SOD SUCCINATE 100 MG VIAL IV PUSH SCH ×3 (02:36→16:39)
[2016-11-07] MEDS: CHLORHEXIDINE GLUCONATE 2 % 1 PACK (2 CLOTHS) TOP SCH (02:36)
[2016-11-07] MEDS: PIPERACIL-TAZO 3.375 GM PREMIX 50 ML IV SCH ×4 (02:36→20:39)
[2016-11-07 02:38] LABS: HEMATOCRIT 33.1 % (35.0-46.0); MEAN CELL VOLUME 89.7 FL (80.0-100.0); MEAN CORPUSCULAR HEMOGLOBIN 29.8 PG (27.0-34.0); MEAN CORPUSCULAR HGB CONC 33.2 % (32.0-36.0); PLATELET COUNT 97 TH/MM3 (150-450); RED BLOOD COUNT 3.69 MIL/MM3 (4.00-5.30); RED CELL DISTRIBUTION WIDTH 21.2 % (11.6-17.2); WHITE BLOOD COUNT 9.6 TH/MM3 (4.0-11.0)
[2016-11-07 02:41] LABS: REVIEW FLAG FINAL
[2016-11-07 03:10] LABS: BICARBONATE 37.1 MEQ/L (21.0-32.0); MAGNESIUM 1.8 MG/DL (1.5-2.5); POTASSIUM 3.9 MEQ/L (3.5-5.1)
[2016-11-07 03:49] LABS: CALCIUM-PROTEIN CORRECTED 7.9 MG/DL (8.5-10.1)
[2016-11-07] MEDS: FUROSEMIDE 20 MG/2 ML VIAL IV PUSH SCH ×4 (04:22→23:00)
[2016-11-07] MEDS: LEVOTHYROXINE SODIUM 100 MCG TAB PO SCH (04:23)
[2016-11-07] MEDS: HEPARIN SODIUM - SQ 10,000 UNITS/ML VIAL SQ SCH ×2 (04:23→16:40)
[2016-11-07] MEDS: PROPOFOL 1000 MG/100 ML INJ 100 ML IV SCH ×2 (04:23→14:38)
[2016-11-07] MEDS: fentaNYL DRIP 250 ML IV SCH ×2 (05:30→08:57)
--- NOTE | 2016-11-07 06:09 | RADRPT ---
EXAM DATE/TIME: 11/07/2016 04:19 [facility] COMPARISON: CHEST SINGLE AP, November 06, 2016, 1:53. INDICATIONS : Respiratory failure. MEDICAL HISTORY : Hypertension. SURGICAL HISTORY : None. ENCOUNTER: Initial ACUITY: 4 - 6 days PAIN SCORE: Non-responsive. LOCATION: Bilateral chest FINDINGS: Single AP view of the chest. Endotracheal tube, nasogastric tube, left subclavian central venous cath eter remain in place. Increase in severe bilateral pulmonary opacity and persistent cardiac silhouett e enlargement. Bilateral pleural effusions unchanged. No evidence of pneumothorax. CONCLUSION: Increase in bilateral pulmonary opacity likely representing pulmonary edema. Bilatera l pleural effusions unchanged. Jamaal Wallis MD on November 07, 2016 at 6:06 Board Certified Radiologist. This report was verified electronically.
[2016-11-07] MEDS: RESP: ALBUTEROL 2.5 MG/IPRATROPIUM 0.5 MG NEB (SCH) NEB ×3 (07:39→20:23)
[2016-11-07] MEDS: CHLORHEXIDINE 0.12% (ORAL KIT) 15 ML CUP MT SCH ×2 (08:00→20:40)
[2016-11-07] MEDS: FAMOTIDINE 20 MG/2 ML VIAL IV PUSH SCH ×2 (08:56→20:38)
[2016-11-07] MEDS: ASPIRIN 81 MG CHEW TAB CHEW SCH (08:56)
[2016-11-07] MEDS: SODIUM CHLORIDE 0.9% FLUSH 5 ML FLUSH IV FLUSH SCH ×2 (09:00→20:39)
[2016-11-07] MEDS: BENEPROTEIN POWDER 1 PACK G-TUBE SCH ×3 (09:00→18:00)
[2016-11-07] MEDS: AMIODARONE 200 MG TAB PO SCH ×2 (11:03→20:38)
[2016-11-07] MEDS ORDERED: FUROSEMIDE 40 MG/4 ML VIAL IV PUSH ONE (11:30)
--- NOTE | 2016-11-07 12:01 | HHI.CCPN ---
Subjective Remarks/Hospital Course 86-year-old female came for slurred speech. Her significant other present in the emergency department giving most of the history. He says that since yesterday morning she's been having this slurred speech. She looked short of breath as well and sats were 93% on room air, was tachycardic and hypotensive. She was intubated by ER attending and is admitted to ICU with bilateral pneumonia. Subjective: 11/06: The patient's bicarbonate level was noted to be elevated. Sodium bicarbonate infusion discontinued. Patient was noted to have level low potassium level which were repleted today. 11/07: The patient remains in SR. Amiodarone has been transitioned to PO.The patient has been weaned off Diprivan, appears more alert, moving extremities x 4 , but not following commands. The patient continues on diuretics QID, CXR revealed this am, worsening pulmonary edema. Additional dose of lasix 40mg x 1 dose. Objective Vital Signs Date Time Temp Pulse Resp B/P Pulse Ox O2 Delivery O2 Flow Rate FiO2 11/07/16 10:00 90 11/07/16 08:00 40 11/07/16 08:00 99.0 18 134/74 94 11/05/16 15:51 Non-Rebreather 15 Intake and Output 11/06/16 11/06/16 11/07/16 08:00 16:00 00:00 Intake Total 1365 ml 2373 ml 975 ml Output Total 1200 ml 800 ml 400 ml Balance 165 ml 1573 ml 575 ml Result Diagram: 11/07/16 0230 11/07/16 0230 Imaging Last 24 hours Impressions Chest X-Ray 11/01/16 1112 Signed Impressions: Service Date/Time: Tuesday, November 01, 2016 11:33 - CONCLUSION: Bibasilar pneumonia. Abhijeet Domingo MD Head CT 11/01/16 0000 Signed Impressions: Service Date/Time: Tuesday, November 01, 2016 11:53 - CONCLUSION: Atrophy. No acute intracranial abnormality demonstrated. Abhijeet Domingo MD Chest X-Ray 11/01/16 0000 Signed Impressions: Service Date/Time: Tuesday, November 01, 2016 16:33 - CONCLUSION: 1. Uncomplicated line placement. No evidence of pneumothorax. 2. Satisfactory position of endotracheal tube as above. 3. Nasogastric tube coiled in the hypopharynx with its tip at the thoracic inlet 4. Cardiomegaly and findings of congestive heart failure. Anil Oconnor MD Objective Remarks GENERAL: Elderly critically ill appearing [place] female intubated , moving extremities, but not following commands. SKIN: Warm and dry. HEAD: Normocephalic. EYES: No scleral icterus. No injection or drainage. NECK: Supple, trachea midline. No JVD or lymphadenopathy. CARDIOVASCULAR: Regular rate and rhythm without murmurs, gallops, or rubs. RESPIRATORY: Breath sounds equal bilaterally. Cracles noted in bases.Mechanical ventilation. GASTROINTESTINAL: Abdomen soft, non-tender, nondistended. MUSCULOSKELETAL: No cyanosis, or edema. BACK: Nontender without obvious deformity. No CVA tenderness. Urinary Catheter: Yes Walters insert reason: Measure Accurate Output A/P Assessment and Plan Respiratory failure - bilateral pneumonia -Pulmonary edema - Broad-spectrum antibiotics - Mechanical ventilation - Follow-up cultures- NGTD - Pulmonary hypertension - Daily sedation vacation w/ CPAP trial -CXR 11/06 B/L pleural effusions Septic shock - Due to above - Central line - Arterial line - IV hydrocortisone weaned to 50mg q 8 hour - No vasopressor support ,hemodynamically improved Chronic Hyponatremia- resolved - Pulmonary nodule - possible malignancy - CT chest with contrast confirms nodules - Hep-Lock IV, NaHCO3 infusion dc'd 11/06 -Na 148 A.Fib with RVR - Cardizem gtt off - Amiodarone drip dc'd 11/06 early am, now on PO amiodarone 200mg BID -1 time Digoxin w/o improvement, previously Hypothyroidism - Synthroid -Obtain Thyroid Panel Hypokalemia - replacement per protocol DVT GI prophylaxis - Heparin and Pepcid Critical Care: my billing statement This patient remains critically ill with one or more organ systems which are or may become a threat to life. I have spent in excess of 37 minutes discontinuously in the care and management of this patient. This time is exclusive of procedures, and includes, but is not limited to, evaluation of the patient, review of the medical record, discussions with family, consultants, nursing staff, or respiratory therapy, and documentation in the medical record. Physician Clarisse Chavira MD Nov 07, 2016 12:01
[2016-11-07 12:07] LABS: BLOOD GAS BASE EXCESS 12.2 mmol/L (-2-2); BLOOD GAS CARBOXYHEMOGLOBIN 1.9 % (0-4); BLOOD GAS HCO3 37 mmol/L (22-26); BLOOD GAS METHEMOGLOBIN 1.1 % (0-2); BLOOD GAS O2 HGB SATURATION 91 % (90-100); BLOOD GAS OXYGEN CONTENT 14.7 Vol % (12.0-20.0); BLOOD GAS PCO2 49 mmHg (38-42); BLOOD GAS PO2 66 mmHg (61-120); BLOOD GAS TOTAL HGB 11.5 G/DL (12.0-16.0); CRITICAL VALUE NO; DRAW SITE LT RADIAL; FIO2 50 %; NUMBER OF ARTERIAL PUNCTURES 1; OXYGEN DEVICE VENTILATOR; STAT NO; TEMP CORR TO 98.6; ULNAR PULSE PRESENT; VENT SETTINGS A/C 500/12/8PEEP
[2016-11-07] MEDS: LACTULOSE SYRUP 20 GM/30 ML CUP PO SCH (14:23)
[2016-11-07] MEDS: SENNOSIDES SYRUP 8.8 MG/5 ML CUP PO SCH (14:23)
[2016-11-07] MEDS: DOCUSATE SODIUM 100 MG/10 ML UDC PO SCH ×2 (14:23→20:38)
[2016-11-07] MEDS ORDERED: PROPOFOL 500 MG/50 ML INJ 50 ML ONE (14:34)
[2016-11-07] MEDS: AZITHROMYCIN INJ 500 MG in SODIUM CHLOR 0.9% 250 ML INJ 250 ML IV SCH ×2 (15:00→16:39)
[2016-11-07] MEDS ORDERED: PHARMACY ORDERED LAB XX ONE (17:45)
[2016-11-07] MEDS: VANCOMYCIN 1,000 MG/NS 250 ML IV SCH ×2 (18:00)
[2016-11-07 18:51] LABS: FREE T4 0.89 NG/DL (0.76-1.46); VANCOMYCIN TROUGH 14.3 MCG/ML (5.0-10.0)
[2016-11-08] VITALS (20 sets, daily range): BP systolic 84–144; BP diastolic 53–82; PULSE 71–129; RESP 14–19; TEMP 97.7–99.2; O2SAT 93–100
[2016-11-08] MEDS: PIPERACIL-TAZO 3.375 GM PREMIX 50 ML IV SCH ×4 (00:17→21:08)
[2016-11-08] MEDS: fentaNYL DRIP 250 ML IV SCH ×2 (00:17→12:07)
[2016-11-08] MEDS: POTASSIUM CHLOR 40 MEQ PREMIX 100 ML IV PRN ×2 (00:18→01:36)
[2016-11-08] MEDS: HYDROCORTISONE SOD SUCCINATE 100 MG VIAL IV PUSH SCH ×3 (00:18→17:19)
[2016-11-08] MEDS: CHLORHEXIDINE GLUCONATE 2 % 1 PACK (2 CLOTHS) TOP SCH (02:08)
[2016-11-08] MEDS: FUROSEMIDE 20 MG/2 ML VIAL IV PUSH SCH ×3 (02:17→17:18)
[2016-11-08] MEDS: LEVOTHYROXINE SODIUM 100 MCG TAB PO SCH (05:13)
[2016-11-08] MEDS: HEPARIN SODIUM - SQ 10,000 UNITS/ML VIAL SQ SCH ×2 (05:13→17:18)
[2016-11-08] MEDS: PROPOFOL 1000 MG/100 ML IV SCH ×3 (05:15→19:40)
[2016-11-08 05:39] LABS: HEMATOCRIT 30.3 % (35.0-46.0); MEAN CORPUSCULAR HEMOGLOBIN 30.4 PG (27.0-34.0); MEAN CORPUSCULAR HGB CONC 34.5 % (32.0-36.0); PLATELET COUNT 97 TH/MM3 (150-450); RED BLOOD COUNT 3.44 MIL/MM3 (4.00-5.30); RED CELL DISTRIBUTION WIDTH 20.9 % (11.6-17.2); REVIEW FLAG FINAL; WHITE BLOOD COUNT 8.5 TH/MM3 (4.0-11.0)
[2016-11-08 06:04] LABS: BICARBONATE 38.3 MEQ/L (21.0-32.0); MAGNESIUM 1.9 MG/DL (1.5-2.5); POTASSIUM 4.1 MEQ/L (3.5-5.1)
[2016-11-08 06:27] LABS: CALCIUM-PROTEIN CORRECTED 7.9 MG/DL (8.5-10.1)
[2016-11-08] MEDS: SENNOSIDES SYRUP 8.8 MG/5 ML CUP PO SCH (07:58)
[2016-11-08] MEDS: DOCUSATE SODIUM 100 MG/10 ML UDC PO SCH ×2 (07:58→21:00)
[2016-11-08] MEDS: LACTULOSE SYRUP 20 GM/30 ML CUP PO SCH (07:58)
[2016-11-08] MEDS: RESP: ALBUTEROL 2.5 MG/IPRATROPIUM 0.5 MG NEB (SCH) NEB ×3 (08:22→20:06)
[2016-11-08] MEDS: BENEPROTEIN POWDER 1 PACK G-TUBE SCH ×3 (09:00→17:19)
--- NOTE | 2016-11-08 09:38 | RADRPT ---
EXAM DATE/TIME: 11/08/2016 06:43 [facility] COMPARISON: CHEST SINGLE AP, November 07, 2016, 4:19. INDICATIONS: Respiratory Failure MEDICAL HISTORY: Hypertension. SURGICAL HISTORY: None. ENCOUNTER: Subsequent ACUITY: 4 - 6 days PAIN SCORE: Non-responsive. LOCATION: Bilateral chest FINDINGS: ET tube, nasogastric tube, central venous catheter are in good position. Patchy air space disease is seen in both lungs, improving in the interval. There is no pneumothorax. CONCLUSION: 1. Support apparatus in good position. 2. Interval improvement with less interstitial and alveolar opacity. Angelo Patel MD FACR on November 08, 2016 at 9:02 Board Certified Radiologist. This report was verified electronically.
[2016-11-08] MEDS: ASPIRIN 81 MG CHEW TAB CHEW SCH (10:20)
[2016-11-08] MEDS: SODIUM CHLORIDE 0.9% FLUSH 5 ML FLUSH IV FLUSH PRN (10:20)
[2016-11-08] MEDS: AMIODARONE 200 MG TAB PO SCH ×2 (10:20→21:07)
[2016-11-08] MEDS: CHLORHEXIDINE 0.12% (ORAL KIT) 15 ML CUP MT SCH ×2 (10:20→20:00)
[2016-11-08] MEDS: SODIUM CHLORIDE 0.9% FLUSH 5 ML FLUSH IV FLUSH SCH ×2 (10:20→21:00)
[2016-11-08] MEDS: FAMOTIDINE 20 MG/2 ML VIAL IV PUSH SCH ×2 (10:20→21:07)
[2016-11-08] MEDS: VANCOMYCIN 1,000 MG/NS 250 ML IV SCH ×2 (12:06)
--- NOTE | 2016-11-08 19:33 | HHI.CCPN ---
Subjective Remarks/Hospital Course 86-year-old female came for slurred speech. Her significant other present in the emergency department giving most of the history. He says that since yesterday morning she's been having this slurred speech. She looked short of breath as well and sats were 93% on room air, was tachycardic and hypotensive. She was intubated by ER attending and is admitted to ICU with bilateral pneumonia. Subjective: 11/06: The patient's bicarbonate level was noted to be elevated. Sodium bicarbonate infusion discontinued. Patient was noted to have level low potassium level which were repleted today. 11/07: The patient remains in SR. Amiodarone has been transitioned to PO.The patient has been weaned off Diprivan, appears more alert, moving extremities x 4 , but not following commands. The patient continues on diuretics QID, CXR revealed this am, worsening pulmonary edema. Additional dose of lasix 40mg x 1 dose. 11/08: The patient received extra doses of Lasix for diuresis yesterday, chest x- ray slightly improved today. CPAP failed yesterday. Initiation of CPAP today reveal lasting greater than 4 hours, however patient still not following commands. Wound care was consult for reddened area stage II on coccyx. Objective Vital Signs Date Time Temp Pulse Resp B/P Pulse Ox O2 Delivery O2 Flow Rate FiO2 11/08/16 18:00 79 11/08/16 17:06 99 50 11/08/16 16:00 98.9 14 144/82 11/05/16 15:51 Non-Rebreather 15 Intake and Output 11/07/16 11/07/16 11/08/16 08:00 16:00 00:00 Intake Total 905 ml 732 ml 855 ml Output Total 450 ml 1400 ml 3300 ml Balance 455 ml -668 ml -2445 ml Result Diagram: 11/08/16 0445 11/08/16 0445 Imaging Last 24 hours Impressions Chest X-Ray 11/01/16 1112 Signed Impressions: Service Date/Time: Tuesday, November 01, 2016 11:33 - CONCLUSION: Bibasilar pneumonia. Abhijeet Domingo MD Head CT 11/01/16 0000 Signed Impressions: Service Date/Time: Tuesday, November 01, 2016 11:53 - CONCLUSION: Atrophy. No acute intracranial abnormality demonstrated. Abhijeet Domingo MD Chest X-Ray 11/01/16 0000 Signed Impressions: Service Date/Time: Tuesday, November 01, 2016 16:33 - CONCLUSION: 1. Uncomplicated line placement. No evidence of pneumothorax. 2. Satisfactory position of endotracheal tube as above. 3. Nasogastric tube coiled in the hypopharynx with its tip at the thoracic inlet 4. Cardiomegaly and findings of congestive heart failure. Anil Oconnor MD Objective Remarks GENERAL: Elderly critically ill appearing [place] female intubated , moving extremities, but not following commands. SKIN: Warm and dry. HEAD: Normocephalic. EYES: No scleral icterus. No injection or drainage. NECK: Supple, trachea midline. No JVD or lymphadenopathy. CARDIOVASCULAR: Regular rate and rhythm without murmurs, gallops, or rubs. RESPIRATORY: Breath sounds equal bilaterally. Cracles noted in bases.Mechanical ventilation. GASTROINTESTINAL: Abdomen soft, non-tender, nondistended. MUSCULOSKELETAL: No cyanosis, or edema. BACK: Nontender without obvious deformity. No CVA tenderness. A/P Assessment and Plan Respiratory failure - bilateral pneumonia -Pulmonary edema - Broad-spectrum antibiotics - Mechanical ventilation - Follow-up cultures- NGTD - Pulmonary hypertension - Daily sedation vacation w/ CPAP trial -CXR 11/08 improvement in bilateral pulmonary opacity Septic shock - Due to above - Central line - Arterial line - IV hydrocortisone weaned to 50mg q 8 hour - Normotensive Chronic Hyponatremia- resolved - Pulmonary nodule - possible malignancy - CT chest with contrast confirms nodules - Hep-Lock IV, NaHCO3 infusion dc'd 11/06 -Na 142 A.Fib with RVR - Cardizem gtt off - Amiodarone drip dc'd 11/06 early am, now on PO amiodarone 200mg BID 11/07 Hypothyroidism - Synthroid -TSH WNL Hypokalemia - replacement per protocol DVT GI prophylaxis - Heparin and Pepcid Stage II coccygeal ulcer Wound care consulted appreciate recommendations Critical Care: This patient remains critically ill with one or more organ systems which are or may become a threat to life. I have spent in excess of 31 minutes discontinuously in the care and management of this patient. This time is exclusive of procedures, and includes, but is not limited to, evaluation of the patient, review of the medical record, discussions with family, consultants, nursing staff, or respiratory therapy, and documentation in the medical record. Contacted cracker dough mixer's office Mr. Humphrey power of cracker dough mixer for patient updated him on patient's medical status. Physician Clarisse Chavira MD Nov 08, 2016 19:33
[2016-11-08] MEDS ORDERED: POTASSIUM CHLORIDE 10 MEQ CONTROLLED RELEASE TAB PO SCH (21:00)
[2016-11-09] VITALS (19 sets, daily range): BP systolic 114–152; BP diastolic 66–94; PULSE 71–138; RESP 7–20; TEMP 97–99.4; O2SAT 93–100
[2016-11-09] MEDS: FUROSEMIDE 20 MG/2 ML VIAL IV PUSH SCH ×4 (00:10→17:38)
[2016-11-09] MEDS ORDERED: AMIODARONE INJ 150 MG in DEXTROSE 5% IN WATER 100ML INJ 97 ML IV ONE ×2 (01:45)
[2016-11-09] MEDS ORDERED: AMIODARONE INJ 900 MG in D5W 500 ML (EXCEL BAG) 482 ML IV SCH (01:45)
[2016-11-09] MEDS: PIPERACIL-TAZO 3.375 GM PREMIX 50 ML IV SCH ×4 (02:21→20:12)
[2016-11-09] MEDS: HYDROCORTISONE SOD SUCCINATE 100 MG VIAL IV PUSH SCH ×3 (02:22→17:40)
[2016-11-09 02:45] LABS: BICARBONATE 38.3 MEQ/L (21.0-32.0); MAGNESIUM 1.9 MG/DL (1.5-2.5)
[2016-11-09] MEDS: AMIODARONE INJ 450 MG in D5W (EXCEL BAG) 241 ML IV SCH ×3 (02:53→20:13)
[2016-11-09 02:55] LABS: POTASSIUM 2.5 MEQ/L (3.5-5.1)
[2016-11-09] MEDS: POTASSIUM CHLOR 40 MEQ PREMIX 100 ML IV PRN ×2 (03:20→05:26)
[2016-11-09] MEDS: CHLORHEXIDINE GLUCONATE 2 % 1 PACK (2 CLOTHS) TOP SCH (04:00)
[2016-11-09] MEDS: POTASSIUM CHLORIDE 25 MEQ EFFERVESCENT TAB PO SCH ×3 (05:26→20:14)
[2016-11-09] MEDS: HEPARIN SODIUM - SQ 10,000 UNITS/ML VIAL SQ SCH ×2 (05:27→17:43)
[2016-11-09] MEDS: VANCOMYCIN 1,000 MG/NS 250 ML IV SCH ×2 (05:27)
[2016-11-09] MEDS: LEVOTHYROXINE SODIUM 100 MCG TAB PO SCH (06:00)
[2016-11-09] MEDS: DOCUSATE SODIUM 100 MG/10 ML UDC PO SCH ×2 (07:55→20:13)
[2016-11-09] MEDS: LACTULOSE SYRUP 20 GM/30 ML CUP PO SCH (07:56)
[2016-11-09] MEDS: SENNOSIDES SYRUP 8.8 MG/5 ML CUP PO SCH (07:56)
[2016-11-09] MEDS: RESP: ALBUTEROL 2.5 MG/IPRATROPIUM 0.5 MG NEB (SCH) NEB ×3 (08:00→20:30)
[2016-11-09] MEDS: ASPIRIN 81 MG CHEW TAB CHEW SCH (08:24)
[2016-11-09] MEDS: CHLORHEXIDINE 0.12% (ORAL KIT) 15 ML CUP MT SCH ×2 (08:24→20:12)
[2016-11-09] MEDS: FAMOTIDINE 20 MG/2 ML VIAL IV PUSH SCH ×2 (08:26→20:13)
[2016-11-09] MEDS: SODIUM CHLORIDE 0.9% FLUSH 5 ML FLUSH IV FLUSH PRN ×2 (08:30→17:44)
[2016-11-09] MEDS: BENEPROTEIN POWDER 1 PACK G-TUBE SCH ×3 (08:30→17:39)
[2016-11-09] MEDS: SODIUM CHLORIDE 0.9% FLUSH 5 ML FLUSH IV FLUSH SCH ×2 (08:30→20:14)
[2016-11-09] MEDS: PROPOFOL 1000 MG/100 ML IV SCH ×2 (09:17→20:13)
[2016-11-09] MEDS: AZITHROMYCIN INJ 500 MG in SODIUM CHLOR 0.9% 250 ML INJ 250 ML IV SCH (15:05)
--- NOTE | 2016-11-09 17:24 | HHI.CCPN ---
Subjective Remarks/Hospital Course 86-year-old female came for slurred speech. Her significant other present in the emergency department giving most of the history. He says that since yesterday morning she's been having this slurred speech. She looked short of breath as well and sats were 93% on room air, was tachycardic and hypotensive. She was intubated by ER attending and is admitted to ICU with bilateral pneumonia. Subjective: 11/06: The patient's bicarbonate level was noted to be elevated. Sodium bicarbonate infusion discontinued. Patient was noted to have level low potassium level which were repleted today. 11/07: The patient remains in SR. Amiodarone has been transitioned to PO.The patient has been weaned off Diprivan, appears more alert, moving extremities x 4 , but not following commands. The patient continues on diuretics QID, CXR revealed this am, worsening pulmonary edema. Additional dose of lasix 40mg x 1 dose. 11/08: The patient received extra doses of Lasix for diuresis yesterday, chest x- ray slightly improved today. CPAP failed yesterday. Initiation of CPAP today reveal lasting greater than 4 hours, however patient still not following commands. Wound care was consult for reddened area stage II on coccyx. 11/09: Afebrile. The patient more awake and responsive. Nodding head and following commands today. Currently tolerating CPAP trials for greater than 4 hours today. Wound care consult performed revealing a deep tissue injury opening full-thickness wound on sacrum. Calazime twice a day ordered for treatment. Last night the patient's on became hypokalemic scheduled doses of potassium were not given, and the patient was placed back on amiodarone infusion. Objective Vital Signs Date Time Temp Pulse Resp B/P Pulse Ox O2 Delivery O2 Flow Rate FiO2 11/09/16 16:20 50 11/09/16 16:20 95 11/09/16 16:20 97.0 7 118/74 93 11/05/16 15:51 Non-Rebreather 15 Intake and Output 11/08/16 11/08/16 11/09/16 08:00 16:00 00:00 Intake Total 695 ml 976 ml 730 ml Output Total 1150.0 ml 750 ml 750 ml Balance -455.0 ml 226 ml -20 ml Result Diagram: 11/08/16 0445 11/09/16 0153 Imaging Last 24 hours Impressions Chest X-Ray 11/01/16 1112 Signed Impressions: Service Date/Time: Tuesday, November 01, 2016 11:33 - CONCLUSION: Bibasilar pneumonia. Abhijeet Domingo MD Head CT 11/01/16 0000 Signed Impressions: Service Date/Time: Tuesday, November 01, 2016 11:53 - CONCLUSION: Atrophy. No acute intracranial abnormality demonstrated. Abhijeet Domingo MD Chest X-Ray 11/01/16 0000 Signed Impressions: Service Date/Time: Tuesday, November 01, 2016 16:33 - CONCLUSION: 1. Uncomplicated line placement. No evidence of pneumothorax. 2. Satisfactory position of endotracheal tube as above. 3. Nasogastric tube coiled in the hypopharynx with its tip at the thoracic inlet 4. Cardiomegaly and findings of congestive heart failure. Anil Oconnor MD Objective Remarks GENERAL: Elderly critically ill appearing [place] female intubated , moving extremities, but not following commands. SKIN: Warm and dry. HEAD: Normocephalic. EYES: No scleral icterus. No injection or drainage. NECK: Supple, trachea midline. No JVD or lymphadenopathy. CARDIOVASCULAR: Regular rate and rhythm without murmurs, gallops, or rubs. RESPIRATORY: Breath sounds equal bilaterally. Cracles noted in bases.Mechanical ventilation. GASTROINTESTINAL: Abdomen soft, non-tender, nondistended. MUSCULOSKELETAL: No cyanosis, or edema. BACK: Nontender without obvious deformity. No CVA tenderness. A/P Assessment and Plan Respiratory failure - bilateral pneumonia -Pulmonary edema-resolved - Broad-spectrum antibiotics - Mechanical ventilation - Follow-up cultures- NGTD - Pulmonary hypertension - Daily sedation vacation w/ CPAP trial, now tolerating trials up to 4 hours -CXR 11/08 improvement in bilateral pulmonary opacity Septic shock - Due to above - Central line - Arterial line - IV hydrocortisone weaned to 50mg q 8 hour - Normotensive Chronic Hyponatremia- resolved - Pulmonary nodule - possible malignancy - CT chest with contrast confirms nodules - Hep-Lock IV, NaHCO3 infusion dc'd 11/06 -Na 142 A.Fib with RVR - Cardizem gtt off - Amiodarone drip dc'd 11/06 early am, now on PO amiodarone 200mg BID 11/07 -The patient had episode of A. fib RVR possibly secondary to hypokalemia last evening, patient currently resumed on amiodarone infusion. Plans to transition off back to by mouth amiodarone with normalization of potassium. The patient continues on scheduled doses of potassium in the setting of every 6 hours diuresis with Lasix. Hypothyroidism - Synthroid - 11/08 TSH , T4 WNL Hypokalemia - replacement per protocol -50 mEq of calcium chloride by mouth twice a day -Follow up repeat potassium level this afternoon DVT GI prophylaxis - Heparin and Pepcid Stage II coccygeal ulcer Wound care consulted-Calazime application BID Critical Care: This patient remains critically ill with one or more organ systems which are or may become a threat to life. I have spent in excess of 30 minutes discontinuously in the care and management of this patient. This time is exclusive of procedures, and includes, but is not limited to, evaluation of the patient, review of the medical record, discussions with family, consultants, nursing staff, or respiratory therapy, and documentation in the medical record. Contacted certified physical therapist assistant's office Mr. Humphrey power of certified physical therapist assistant for patient updated him on patient's medical status, discussed improvement with CPAP trials. Physician Clarisse Chavira MD Nov 09, 2016 17:24
[2016-11-09] MEDS: fentaNYL DRIP 250 ML IV SCH (17:55)
[2016-11-09 19:13] LABS: POTASSIUM 3.6 MEQ/L (3.5-5.1)
[2016-11-10] VITALS (8 sets, daily range): BP systolic 133–141; BP diastolic 76–81; PULSE 83–96; RESP 11–22; TEMP 98–99.8; O2SAT 96–98
[2016-11-10] MEDS: FUROSEMIDE 20 MG/2 ML VIAL IV PUSH SCH ×3 (00:04→10:41)
[2016-11-10] MEDS: VANCOMYCIN 1,000 MG/NS 250 ML IV SCH ×2 (00:09)
[2016-11-10] MEDS: PROPOFOL 1000 MG/100 ML IV SCH ×2 (01:34→11:01)
[2016-11-10] MEDS: HYDROCORTISONE SOD SUCCINATE 100 MG VIAL IV PUSH SCH ×3 (01:38→16:53)
[2016-11-10] MEDS: PIPERACIL-TAZO 3.375 GM PREMIX 50 ML IV SCH ×2 (01:39→08:56)
[2016-11-10] MEDS: CHLORHEXIDINE GLUCONATE 2 % 1 PACK (2 CLOTHS) TOP SCH (03:32)
[2016-11-10 05:07] LABS: BICARBONATE 35.6 MEQ/L (21.0-32.0); POTASSIUM 3.4 MEQ/L (3.5-5.1)
[2016-11-10] MEDS: LEVOTHYROXINE SODIUM 100 MCG TAB PO SCH (06:03)
[2016-11-10] MEDS: HEPARIN SODIUM - SQ 10,000 UNITS/ML VIAL SQ SCH (06:04)
[2016-11-10] MEDS: POTASSIUM CHLOR 20 MEQ PREMIX 100 ML IV PRN (06:44)
[2016-11-10] MEDS: RESP: ALBUTEROL 2.5 MG/IPRATROPIUM 0.5 MG NEB (SCH) NEB (08:48)
[2016-11-10] MEDS: FAMOTIDINE 20 MG/2 ML VIAL IV PUSH SCH (08:57)
[2016-11-10] MEDS: ASPIRIN 81 MG CHEW TAB CHEW SCH (08:58)
[2016-11-10] MEDS: LACTULOSE SYRUP 20 GM/30 ML CUP PO SCH (08:58)
[2016-11-10] MEDS: DOCUSATE SODIUM 100 MG/10 ML UDC PO SCH (08:58)
[2016-11-10] MEDS: POTASSIUM CHLORIDE 25 MEQ EFFERVESCENT TAB PO SCH (08:59)
[2016-11-10] MEDS: SODIUM CHLORIDE 0.9% FLUSH 5 ML FLUSH IV FLUSH PRN (08:59)
[2016-11-10] MEDS: BENEPROTEIN POWDER 1 PACK G-TUBE SCH (08:59)
[2016-11-10] MEDS: SODIUM CHLORIDE 0.9% FLUSH 5 ML FLUSH IV FLUSH SCH (08:59)
[2016-11-10] MEDS: SENNOSIDES SYRUP 8.8 MG/5 ML CUP PO SCH (09:00)
[2016-11-10] MEDS: CHLORHEXIDINE 0.12% (ORAL KIT) 15 ML CUP MT SCH (09:00)
--- NOTE | 2016-11-10 11:43 | EC ---
Study Study Date:11/10/2016 STUDY CONCLUSIONS SUMMARY - Left ventricle: The cavity size was normal. Wall thickness was normal. Systolic function was mildly reduced. The estimated ejection fraction was in the range of 45% to 50%. Wall motion was normal; there were no regional wall motion abnormalities. - Aortic valve: Mild regurgitation. - Mitral valve: Severe regurgitation. - Left atrium: The atrium was dilated. - Tricuspid valve: Severe regurgitation. If LV function is below 40, please consider prescribing an ACEI or ARB or document rationale for non-use. PROCEDURE DATA STUDY STATUS: Elective. Procedure: Transthoracic echocardiography. Image quality was good. Scanning was performed from the parasternal, apical, and subcostal acoustic windows. Study completion: The patient tolerated the procedure well. Transthoracic echocardiography. M-mode, complete 2D, complete spectral Doppler, and color Doppler. Patient status: Inpatient. CARDIAC ANATOMY LEFT VENTRICLE: The cavity size was normal. Wall thickness was normal. Systolic function was mildly reduced. The estimated ejection fraction was in the range of 45% to 50%. Wall motion was normal; there were no regional wall motion abnormalities. AORTIC VALVE: Trileaflet; normal thickness leaflets. Doppler: Transvalvular velocity was within the normal range. There was no stenosis. Mild regurgitation. AORTA: Aortic root: The aortic root was normal in size. MITRAL VALVE: Structurally normal valve. Doppler: Transvalvular velocity was within the normal range. There was no evidence for stenosis. Severe regurgitation. LEFT ATRIUM: The atrium was dilated. RIGHT VENTRICLE: The cavity size was normal. Wall thickness was normal. PULMONIC VALVE: Doppler: Transvalvular velocity was within the normal range. There was no evidence for stenosis. No regurgitation. TRICUSPID VALVE: Structurally normal valve. Doppler: Transvalvular velocity was within the normal range. Severe regurgitation. PULMONARY ARTERY: The main pulmonary artery was normal-sized. Systolic pressure was within the normal range. RIGHT ATRIUM: The atrium was normal in size. PERICARDIUM: There was no pericardial effusion. SYSTEMIC VEINS: Inferior vena cava: The vessel was normal in size. Prepared and signed by Best Inman [id number]
[2016-11-10] MEDS ORDERED: LORazepam 2 MG/ML VIAL IV PRN ×2 (15:15)
[2016-11-10] MEDS ORDERED: LORazepam 2 MG/ML VIAL IVS PRN (15:15)
[2016-11-10] MEDS ORDERED: LORazepam 2 MG/ML VIAL IV ONE ×2 (15:15→16:00)
[2016-11-10] MEDS ORDERED: HYDROmorphone HCL PF 2 MG/ML VIAL IV ONE ×2 (15:15→16:00)
[2016-11-10] MEDS ORDERED: HYDROmorphone HCL PF 2 MG/ML VIAL IV PRN ×2 (15:15→16:00)
[2016-11-10] MEDS ORDERED: ACETAMINOPHEN 650 MG SUPP PR PRN (16:00)
[2016-11-10] MEDS ORDERED: fentaNYL DRIP 250 ML IV SCH (16:00)
[2016-11-10] MEDS ORDERED: HYOSCYAMINE 0.125 MG TAB PO/SL ONE (16:00)
[2016-11-10] MEDS ORDERED: FUROSEMIDE 20 MG/2 ML VIAL IV PRN (16:00)
[2016-11-10] MEDS ORDERED: BISACODYL 10 MG SUPP PR PRN (16:00)
--- NOTE | 2016-11-10 16:39 | PD.CONS ---
Consult Service Palliative Care . Consult Requested By Dr. Le . Primary Care Physician Joaquin Guzmán MD . Reason for Consultation a. To assist with evaluation and management of symptoms including: dyspnea; pain; encephalopathy b. To assist medical decision maker(s) with: better understanding of current medical conditions; weighing benefits/burdens of medical treatment options; making medical treatment decisions. . HPI History of Present Illness Ms. Carvajal is an 86-year-old female with a known medical history including chronic hyponatremia; paroxysmal atrial fibrillation; pulmonary hypertension; enlarging pulmonary nodules felt to be malignant; postmenopausal osteoporosis; peripheral neuropathy; hypertension; anxiety; hypothyroidism; GERD; mitral valve prolapse; COPD; and memory issues who was brought to the emergency department on 11/01/16 because of slurred speech and dyspnea. Her long-term partner, Chuck Dick, reported she was having a several-day history of increasing shortness of breath and phlegm production. The slurred speech began the morning before ER presentation. The patient denied chest pain or headache. Vital signs in the emergency department were as follows: Temperature 98.0; pulse 124; respiratory rate 22; blood pressure 141/104; pulse oximetry 95% on O2 via nasal cannula at 2 L a minute Physical exam by the emergency purchasing department clerk showed the following: Patient was awake and alert, frail appearing, and in moderate distress. Heart rate was irregularly irregular with tachycardia. Accessory muscles were being used. There were bibasilar crackles in the lungs. No other significant abnormalities were noted. Initial diagnostic testing revealed the following: * CBC showed WBC 12.7; hemoglobin 14.9; platelet count 156 . There were 14% bands. * Chemistry panel showed sodium 129; potassium 4.1; chloride 92; CO2 24.6; anion gap 12; BUN 20; creatinine 0.73; GFR 75; glucose 119; lactic acid 3.8; calcium 8.3. * Liver function testing showed total bilirubin 1.1; AST 42; ALT 94; alkaline phosphatase 68; total protein 7.0; albumin 3.4 * Cardiac serology showed troponin 0.07; B-type natriuretic peptide 1109 * Urinalysis was unremarkable * EKG showed atrial fibrillation with left axis deviation and rapid ventricular rate with a heart rate of 112 * CT of the head showed atrophy but no acute intracranial abnormality. * Chest x-ray showed stable appearance to the lungs with likely bilateral pleural effusions with associated airspace consolidation and atelectasis in the lower lung zones. With her leukocytosis, x-ray findings, an elevated lactic acid, the patient was started on empiric antibiotics in the emergency room with concerns for pneumonia and sepsis. She was not initially given a fluid bolus because of her elevated BNP. While still in the emergency department the patient's blood pressure fell into the 60s systolic and she became incoherent with respiratory rate down at 8. She was intubated and placed on mechanical ventilation in the emergency room and given 2 L of IV fluids. A central line was also placed. IV steroids were started. Critical care was consulted and the patient was admitted to the medical intensive care unit. Blood cultures showed no growth. Urine culture was negative. CT imaging the chest showed bibasilar consolidation; moderate right and small left pleural effusions; enlarged pulmonary trunk and pulmonary arteries consistent with pulmonary arterial hypertension. There was no mention of pulmonary nodules. The patient showed some improvement and was extubated on 11/05/16. It appears she subsequently required reintubation and remains on the ventilator at this time. Function/Cognitive Trajectory The patient's partner reports she has been declining over the last year. She normally ambulates with a walker. She requires assistance with toileting, bathing, and dressing. According to her primary care doctor she has been followed for a progressively enlarging right lung nodule for which she has declined biopsy or any other type of intervention. . Review of Systems ROS Limitations: Clinical Condition (patient is intubated, mechanically ventilated, and sedated in the intensive care unit. She is unable to provide her own review of systems. Review of systems is taken from the patient's long- term partner and from available medical records.) Constitutional: COMPLAINS OF: Fatigue, Weight loss, Change in appetite, Generalized weakness, DENIES: Pain Eyes: COMPLAINS OF: Vision loss Ears, nose, mouth, throat: DENIES: Hearing loss, Oral lesions Respiratory: COMPLAINS OF: Cough, Wheezing, Sputum production, Shortness of breath, DENIES: Apneas, Hemoptysis Cardiovascular: COMPLAINS OF: Dyspnea on Exertion, DENIES: Chest pain, Palpitations, Syncope Gastrointestinal: COMPLAINS OF: Dyspepsia or heartburn, DENIES: Bloody stools , Constipation, Diarrhea, Nausea, Vomiting Genitourinary: DENIES: Urinary frequency, Urinary incontinence Musculoskeletal: COMPLAINS OF: Joint pain, Back pain, Neck pain Neurologic: COMPLAINS OF: Headache, DENIES: Seizures Psychiatric: COMPLAINS OF: Confusion Past Family Social History Coded Allergies: Prednisone (Verified Allergy, Severe, Hives, 11/01/16) Demerol (Verified Adverse Reaction, Intermediate, HALLUCINATIONS, 11/01/16) Lopressor (Verified Adverse Reaction, Unknown, 11/01/16) unknown Uncoded Allergies: PLASTIC TAPE (Allergy, Mild, RASH, 02/11/13) red rash Past Medical History * Chronic hyponatremia, felt to be a reset osmostat * Paroxysmal atrial fibrillation * Pulmonary hypertension * Pulmonary nodules (CT imaging as outpt per Dr. 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 She has consistently declined further intervention or treatment for this and is followed by Dr Harrison.) * Postmenopausal osteoporosis * Peripheral neuropathy * Hypertension * Anxiety * Decreased hearing * Hypothyroidism * GERD * Mitral valve prolapse * COPD * Memory issues . Past Surgical History ANDRZEJ with BSO Cholecystectomy Cystocele and rectocele repair Tonsillectomy Bilateral cataract surgery . Reported Medications Prehospitalization medications included the following: Aspirin 81 Mg Chew 81 Mg CHEW DAILY Temazepam 30 Mg Cap 30 Mg PO HS PRN Diltiazem (Diltiazem HCl) 120 Mg Tab 120 Mg PO DAILY Levothyroxine (Levothyroxine Sodium) 50 Mcg Tab 50 Mcg PO DAILY Levothyroxine (Levothyroxine Sodium) 100 Mcg Tab 100 Mcg PO SUNDAY AND SUNDAY Atenolol 25 Mg Tab 25 Mg PO HS Prednisone 20 Mg Tab 20 Mg PO BID . Current Medications Medications (Trade) Dose Ordered Sig/Boy Route Start Time Stop Time Status Last Admin Chlorhexidine Gluconate 15 ml 15 ml BID@08,20 MT 11/01/16 20:00 11/10/16 09:00 (fentaNYL DRIP) 250 ml @ 0 mls/hr TITRATE IV 11/03/16 22:45 11/09/16 17:55 (SoluCORTEF INJ) 50 mg Q8H IV PUSH 11/06/16 18:00 11/10/16 08:57 (Dilaudid Pf Inj) 1 mg ONCE ONCE IV 11/10/16 16:00 11/10/16 16:01 (Ativan Inj) 2 mg ONCE ONCE IV 11/10/16 16:00 11/10/16 16:01 (Levsin) 0.25 mg ONCE ONCE PO/SL 11/10/16 16:00 11/10/16 16:01 (Dilaudid Pf Inj) 0.75 mg Q30M PRN IV 11/10/16 16:00 (Dilaudid Pf Inj) 1 mg Q30M PRN IV 11/10/16 15:15 (Ativan Inj) 1 mg Q6HR IV 11/10/16 18:00 (Ativan Inj) 1 mg Q1H PRN IV 11/10/16 15:15 (Ativan Inj) 2 mg Q1H PRN IV 11/10/16 15:15 (Ativan Inj) 2 mg Q15M PRN IVS 11/10/16 15:15 (Tylenol Supp) 650 mg Q4H PRN [place] 11/10/16 16:00 (Lasix Inj) 20 mg Q6H PRN IV 11/10/16 16:00 Bisacodyl 10 mg 10 mg DAILY PRN [place] 11/10/16 16:00 (fentaNYL DRIP) 250 ml @ 0 mls/hr TITRATE IV 11/10/16 16:00 . Family History Mother with a hx of MS and colon cancer Father with a hx of laryngeal cancer . Substance Use Tobacco: Smoked one pack per day for approximately 15 years. Quit in approximately 1986 Alcohol: History of occasional alcohol use. No history of abuse. Prescription med abuse: No history of prescription drug abuse. Illicits: No known use of illicits . Psychosocial History Ms. Carvajal is originally from [place]. She has lived in [place] since the . The patient has a high school education. She was once. Her in approximately 2005. The patient had one child who in very early infancy. There are no surviving siblings. Patient has been living with her long-term friendChuck Dickfor approximately 3 years Mr. Dick and his along with the patient and the patient's had been friends for decades. Mr. Dick is currently the patient's primary caregiver. Mr. Dick is 85 years old. . Spiritual/Cultural Factors Patient comes from a Pentecostalism tradition. Islam and spirituality have not been an important part of her life of late. Chuck did request that a auto battery builder come to visit the patient. . Living Will: Copy in medical record Health Care Surrogate: Copy in medical record Durable Power of Intake Assessor: Copy in medical record Health Care Surrogate(s): The patient has designated her state attorney, Edwin Velez Jr, as her healthcare power of state attorney as well as financial power of state attorney. . Documented care wishes: The patient has a standard living will which indicated she would not want life prolonging measures should she be found to have an end-stage condition, terminal condition, or persistent vegetative state. . Today's verbally stated goals: Patient is unable to verbally stated her health care goals/preferences. It appears unlikely she will regain that capacity. . Family/friends goals: I have spoken with both the patient's long-term partnerChuck Avalos well as the patient's designated healthcare power of state attorney. Both agree that if in the opinion of the medical team, the patient is unlikely to have a meaningful recovery and she is "end-stage," they would like to terms of her living will honored and to have life support withdrawn. . Ethical and Legal Issues Patient is incapacitated to make her own health care decisions. She is unlikely to regain capacity. . Physical Exam Vital Signs Date Time Temp Pulse Resp B/P Pulse Ox O2 Delivery O2 Flow Rate FiO2 11/10/16 12:00 99.8 92 11 135/78 97 11/10/16 12:00 50 11/10/16 08:50 50 11/10/16 08:48 96 50 11/10/16 08:28 98 50 11/10/16 08:00 99.2 90 13 134/78 98 11/10/16 08:00 90 11/10/16 08:00 50 11/10/16 06:00 91 11/10/16 04:00 50 11/10/16 04:00 98.0 91 22 141/81 98 11/10/16 04:00 91 11/10/16 02:00 96 11/10/16 00:00 50 11/10/16 00:00 83 11/10/16 00:00 98.2 83 20 133/76 96 11/09/16 22:00 130 11/09/16 20:30 99 50 11/09/16 20:00 99.4 124 20 136/94 98 11/09/16 20:00 124 11/09/16 20:00 50 11/09/16 18:11 85 11/09/16 16:20 50 11/09/16 16:20 95 11/09/16 16:20 97.0 84 7 118/74 93 . 11/09/16 11/10/16 19:00 07:00 Intake Total 1305 ml 1475 ml Output Total 275 ml 1225 ml Balance 1030 ml 250 ml IV Total 969 ml 928 ml Tube Feeding 336 ml 547 ml Output Urine Total 275 ml 1200 ml Gastric Drainage Total 25 ml # Bowel Movements 0 . Exam CONSTITUTIONAL/GENERAL: This is a pale, frail-appearing female, intubated, sedated, on mechanical ventilation in the medical intensive care unit. While on sedation, she is in no apparent distress. TUBES/LINES/DRAINS: Left subclavian central line; soft wrist restraints; Walters catheter; orotracheal tube; orogastric tube; SCDs. SKIN: No jaundice. Ecchymoses on upper extremities. No wounds seen anteriorly. Nurses report a 2.5 x 3 cm full-thickness pressure ulcer on her sacrum -- I did not personally examined this wound. Skin temperature appropriate. Not diaphoretic. HEAD: Atraumatic. Normocephalic. EYES: Pupils equal and round and reactive. Unable to assess extraocular movements. No scleral icterus. No injection or drainage. Fundi not examined. ENT: Unable to assess hearing. Nose without bleeding or purulent drainage. Throat without visible erythema, exudates, masses, or lesions though difficult to evaluate due to intubations. NECK: Trachea midline. Supple, nontender. No palpable thyroid enlargement or nodularity. CARDIOVASCULAR: Regular rate and rhythm without murmurs, gallops, or rubs. No JVD. Peripheral pulses symmetric. RESPIRATORY/CHEST: Symmetric, unlabored respirations. Coarse breath sounds bilaterally with scattered rhonchi. Breath sounds equal bilaterally. No wheezes. GASTROINTESTINAL: Abdomen soft, non-tender, mildly distended. No hepato- splenomegaly, or palpable masses. No guarding. Bowel sounds present. GENITOURINARY: Without palpable bladder distension. Walters catheter in place. MUSCULOSKELETAL: Extremities without clubbing, cyanosis. There is some generalized edema of the extremities. No joint tenderness or effusion noted. No calf tenderness. No mottling or clubbing. LYMPHATICS: No palpable cervical or supraclavicular adenopathy. NEUROLOGICAL: Sedated. Occasionally tracks. Unable to follow commands. Makes no attempt to answer questions. A few spontaneous movements of the extremities are seen. PSYCHIATRIC: No obvious anxiety/depression. No apparent hallucinations or other psychotic thought process. . Diagnostic Tests Laboratory Laboratory Tests Test 11/07/16 11/07/16 11/08/16 11/09/16 17:42 23:00 04:45 01:53 Free Thyroxine 0.89 NG/DL (0.76-1.46) Thyroid Stimulating Hormone 0.642 uIU/ML 3rd Gen (0.358-3.740) Vancomycin Level Trough 14.3 MCG/ML (5.0-10.0) Potassium Level 2.8 MEQ/L 4.1 MEQ/L 2.5 MEQ/L (3.5-5.1) (3.5-5.1) (3.5-5.1) White Blood Count 8.5 TH/MM3 (4.0-11.0) Red Blood Count 3.44 MIL/MM3 (4.00-5.30) Hemoglobin 10.5 GM/DL (11.6-15.3) Hematocrit 30.3 % (35.0-46.0) Mean Corpuscular Volume 88.0 FL (80.0-100.0) Mean Corpuscular Hemoglobin 30.4 PG (27.0-34.0) Mean Corpuscular Hemoglobin 34.5 % Concent (32.0-36.0) Red Cell Distribution Width 20.9 % (11.6-17.2) Platelet Count 97 TH/MM3 (150-450) Mean Platelet Volume 8.6 FL (7.0-11.0) Sodium Level 142 MEQ/L 144 MEQ/L (136-145) (136-145) Chloride Level 97 MEQ/L 98 MEQ/L (98-107) (98-107) Carbon Dioxide Level 38.3 MEQ/L 38.3 MEQ/L (21.0-32.0) (21.0-32.0) Anion Gap 7 MEQ/L (5-15) 8 MEQ/L (5-15) Blood Urea Nitrogen 20 MG/DL (7-18) 20 MG/DL (7-18) Creatinine 0.66 MG/DL 0.51 MG/DL (0.50-1.00) (0.50-1.00) Estimat Glomerular Filtration 85 ML/MIN (>89) 114 ML/MIN Rate (>89) Random Glucose 118 MG/DL 133 MG/DL (74-106) (74-106) Calcium Level 6.8 MG/DL 7.5 MG/DL (8.5-10.1) (8.5-10.1) Protein Corrected Calcium 7.9 MG/DL (8.5-10.1) Phosphorus Level 2.9 MG/DL 2.4 MG/DL (2.5-4.9) (2.5-4.9) Magnesium Level 1.9 MG/DL 1.9 MG/DL (1.5-2.5) (1.5-2.5) Total Protein 5.0 GM/DL (6.4-8.2) Test 11/09/16 11/10/16 17:45 03:44 Potassium Level 3.6 MEQ/L 3.4 MEQ/L (3.5-5.1) (3.5-5.1) Phosphorus Level 3.8 MG/DL (2.5-4.9) Sodium Level 144 MEQ/L (136-145) Chloride Level 99 MEQ/L (98-107) Carbon Dioxide Level 35.6 MEQ/L (21.0-32.0) Anion Gap 9 MEQ/L (5-15) Blood Urea Nitrogen 27 MG/DL (7-18) Creatinine 0.55 MG/DL (0.50-1.00) Estimat Glomerular Filtration 104 ML/MIN Rate (>89) Random Glucose 116 MG/DL (74-106) Calcium Level 7.8 MG/DL (8.5-10.1) . Result Diagram: 11/08/16 0445 11/10/16 0344 Microbiology Initial blood cultures were negative. . Imaging Last Impressions Chest X-Ray 11/08/16 Signed Impressions: Service Date/Time: Tuesday, November 08, 2016 06:43 - CONCLUSION: 1. Support apparatus in good position. 2. Interval improvement with less interstitial and alveolar opacity. Angelo Patel MD FACR Head CT 11/01/16 Signed Impressions: Service Date/Time: Tuesday, November 01, 2016 11:53 - CONCLUSION: Atrophy. No acute intracranial abnormality demonstrated. Abhijeet Domingo MD Chest CT 3/8/17 0000 Signed Impressions: Service Date/Time: Tuesday, November 01, 2016 18:43 - CONCLUSION: 1. Bibasilar consolidation. 2. Moderate right and small left pleural effusion. 3. Enlarged pulmonary trunk and pulmonary arteries consistent with pulmonary arterial hypertension. 4. SVC appears patent. Jeremias Simpson MD . Procedures * Intubation/mechanical ventilation * Central line placement . Other * Echocardiogram of 11/10/16 reveals the following: Estimated ejection fraction is 45-50%. Wall motion was normal. No regional wall motion abnormalities. Mild aortic valve regurgitation. Severe mitral valve regurgitation. Severe tricuspid valve regurgitation. There is left atrium dilatation. . Patient/Family Conference Present at Family Conference: Patient's long-term partner-- Chuck Dick. Patient's state attorney and health care power of state attorney -- Edwin Velez Jr. . Family Conference Time (mins): 50 (I spoke at the bedside with the patient's partner for approximately 40 minutes. I spoke by phone with the patient's healthcare power of state attorney for approximately 10 minutes.) Family Conference Location: Bedside, Telephone Issues Discussed: * Palliative care role, purpose, approach * Additional medical, psychosocial, and spiritual history * Patients general health, functional status, and cognitive changes in the months leading up to the current hospitalization * Family understanding of the current medical problems * Family understanding of prognosis * Patients goals of care as best understood from advance directives and/or conversations and/or values * Current medical treatment options and benefits/burdens of those options * Questions answered to the best of my ability * Palliative care contact information provided . Assessment and Plan Disease Oriented Problem List: (1) Pneumonia (2) Sepsis Comment: Patient had developed septic shock. Blood cultures showed no growth. . . (3) Respiratory failure requiring intubation (4) Atrial fibrillation with RVR (5) Pulmonary nodule Comment: Patient's primary care provider states that patient has been followed for an enlarging right pulmonary mass thought to be a malignancy. Patient has refused further work-up. . (6) Pulmonary hypertension (7) Tricuspid valve regurgitation Comment: Echo results indicate this is severe. (8) Mitral valve regurgitation Comment: Echo results indicate this is severe. . (9) Chronic hyponatremia (10) Peripheral neuropathy (11) Hypothyroidism (12) HTN (hypertension) (13) Pressure ulcer Comment: Full thickness on sacrum. . Symptom Scale: (1) Pain 0-10 Scale: Unable to quantify Comment: Patient had no significant prior pain syndromes according to her partner. Current sources of pain might include her sacral wound; orotracheal and orogastric intubation; vascular access lines; Walters catheter; restraints; and prolonged bedbound status. Patient is unable to quantify or qualify her pain. . (2) Dyspnea 0-10 Scale: Unable to quantify Comment: Dyspnea is currently being managed via mechanical ventilation. . (3) Encephalopathy 0-10 Scale: Unable to quantify Comment: Patient seems confused even on minimum sedation. Probably has a multifactorial encephalopathy. . Pertinent Non-Medical Issues Psychosocial: Patient's primary psychosocial support is her mcc friend Chuck Dick. He is also her primary caregiver. Patient has no surviving family. Spiritual: Patient comes from a Pentecostalism tradition. Chuck Dick has requested that a receiving distribution station operator visit. Legal: Patient has well executed advanced directives through her state attorney Edwin Velez Jr. Mr. Velez is designated as the patient's health care power of state attorney. Standard living will is also in place. Ethical issues impacting care: Patient is incapacitated to make her own health care decisions and is not anticipated to regain capacity. . Important Contacts * Edwin Velez Jr. (her personal state attorney as well as power of state attorney for health care and financial matters) * Chuck Dick (long-term friend) [phone]; [phone] . Prognosis The patient has multiple comorbidities listed above including enlarging pulmonary nodule felt to be a malignancy; pulmonary hypertension; severe regurgitation of 2 cardiac valves; and paroxysmal atrial fibrillation. She has not shown significant improvement in spite of aggressive care here in the intensive care unit. Critical care believes her condition is likely end stage at this time. It was felt appropriate to speak with health care decision-maker' s to see if he agreed it was time to on her the patient's living will. . Code Status: No Code Plan == Code Status: After speaking with the patient's healthcare power of state attorney and with the patient's long-term friend, it was agreed to change code status to NO CODE == Decision making: The patient is incapacitated to make her own health care decisions. She is not expected to regain capacity to do so. She has designated her personal state attorney,Edwin Velez, Jr., as her power of state attorney for both healthcare decision-making and financial affairs. Mr. Velez has been in close touch with the medical team. == Goals of medical treatment: Given the patient's advanced age, her multiple comorbidities, and her lack of significant response to aggressive care, the critical care team feels she is likely end-stage. Her condition has been discussed with her healthcare power of state attorney and her close friend. Both agree it is time to honor her living will, transition to "comfort measures only, " and withdraw life support. == I have personally engaged in the following conversations: * I spoke with the strawhat blocking operator , Dr. Le, following her visit to patient. We discussed the patient's condition and she believes it is end stage * I spoke with the patient's primary care physician, Dr. Guzmán, who confirmed information regarding the enlarging pulmonary mass and the patient's refusal to work it up further. We also discussed the patient's current condition and Dr. Guzmán agreed with withdrawal of life support if that was the decision of the health care power of state attorney * The Power of Intake Assessor wanted to be certain the patient's friend was agreeable to withdrawal of life support prior to his giving approval. I had the above referenced bedside conversation with Chuck Dick * I spoke via phone with the power of state attorney and let him know that two physicians agreed that the condition was end stage. I let him know that Mr. Dick supported honoring the terms of the living will at this time. I brought Mr. Dick to the phone to speak with Mr. Velez to confirm this. Mr. Velez then agreed to sign for withdrawal and I faxed him the appropriate Exhibit. == I spoke with Father Pieter who was able to offer Sacrament of the Sick to the patient while Chuck was present. == Per the intensivists's request, I personally wrote opiate, benzo, and other orders to address dyspnea/pain/anxiety during and after withdrawal of life support. I wrote orders to discontinue non comfort-oriented medications and treatments. == I provided anticipatory guidance to the patient's friend has been at bedside.. == there was ongoing collaboration with the patient's primary nurse. The patient is critically ill with multi-organ failure. Total critical care time is greater than 75 minutes and does not include any concurrent time with strawhat blocking operator. Time Spent Total Floor Time (mins): 95 (Total floor time included chart review; patient exam; discussion with Dr. Le; phone discussion with Dr. Guzmán; bedside discussion with Chuck Dick; phone discussion with health care power of state attorney; writing orders; collaborating with primary nurse; and documenting note.) Face to Face Time (mins): 35 >50% Counseling/Coord of Care: No Thank you for the opportunity to participate in the care of Ms. Mis. . Attestation To help prompt me to consider important information that might be impacting today's encounter and assessment, information from prior notes written by myself or my colleagues may have been "brought forward" into today's note. My signature on this note, however, is an attestation that I personally performed the exam, history, and/or decision-making noted today, and, unless otherwise indicated, the interactions with patient, family, and staff as well as the review of records all occurred today. I also attest that the listed assessment and stated plan reflect my best clinical judgment today based on the combination of historical information, prior notes, and today's exam/ interactions. When time spent is documented, it refers only to time spent today by the signer, or if indicated, combined time spent today by collaborating physician/nurse practitioner. . Jose Clark MD Nov 10, 2016 16:39
--- NOTE | 2016-11-10 17:46 | HHI.CCPN ---
Subjective Remarks/Hospital Course 86-year-old female came for slurred speech. Her significant other present in the emergency department giving most of the history. He says that since yesterday morning she's been having this slurred speech. She looked short of breath as well and sats were 93% on room air, was tachycardic and hypotensive. She was intubated by ER attending and is admitted to ICU with bilateral pneumonia. Subjective: 11/06: The patient's bicarbonate level was noted to be elevated. Sodium bicarbonate infusion discontinued. Patient was noted to have level low potassium level which were repleted today. 11/07: The patient remains in SR. Amiodarone has been transitioned to PO.The patient has been weaned off Diprivan, appears more alert, moving extremities x 4 , but not following commands. The patient continues on diuretics QID, CXR revealed this am, worsening pulmonary edema. Additional dose of lasix 40mg x 1 dose. 11/08: The patient received extra doses of Lasix for diuresis yesterday, chest x- ray slightly improved today. CPAP failed yesterday. Initiation of CPAP today reveal lasting greater than 4 hours, however patient still not following commands. Wound care was consult for reddened area stage II on coccyx. 11/09: Afebrile. The patient more awake and responsive. Nodding head and following commands today. Currently tolerating CPAP trials for greater than 4 hours today. Wound care consult performed revealing a deep tissue injury opening full-thickness wound on sacrum. Calazime twice a day ordered for treatment. Last night the patient's on became hypokalemic scheduled doses of potassium were not given, and the patient was placed back on amiodarone infusion. 11/10: Patient not tolerating CPAP today. Extensive discussion with family member and Mr. Velez (POA). Family requesting palliative consult for withdrawal today. Objective Vital Signs Date Time Temp Pulse Resp B/P Pulse Ox O2 Delivery O2 Flow Rate FiO2 11/10/16 12:00 99.8 92 11 135/78 97 11/10/16 12:00 50 Intake and Output 11/09/16 11/09/16 11/10/16 08:00 16:00 00:00 Intake Total 974 ml 1305 ml 599 ml Output Total 400 ml 275 ml 775 ml Balance 574 ml 1030 ml -176 ml Result Diagram: 11/08/16 0445 11/10/16 0344 Imaging Last 24 hours Impressions Chest X-Ray 11/01/16 1112 Signed Impressions: Service Date/Time: Tuesday, November 01, 2016 11:33 - CONCLUSION: Bibasilar pneumonia. Abhijeet Domingo MD Head CT 11/01/16 0000 Signed Impressions: Service Date/Time: Tuesday, November 01, 2016 11:53 - CONCLUSION: Atrophy. No acute intracranial abnormality demonstrated. Abhijeet Domingo MD Chest X-Ray 11/01/16 0000 Signed Impressions: Service Date/Time: Tuesday, November 01, 2016 16:33 - CONCLUSION: 1. Uncomplicated line placement. No evidence of pneumothorax. 2. Satisfactory position of endotracheal tube as above. 3. Nasogastric tube coiled in the hypopharynx with its tip at the thoracic inlet 4. Cardiomegaly and findings of congestive heart failure. Anil Oconnor MD Objective Remarks GENERAL: Elderly critically ill appearing [place] female intubated , moving extremities, but not following commands. SKIN: Warm and dry. HEAD: Normocephalic. EYES: No scleral icterus. No injection or drainage. NECK: Supple, trachea midline. No JVD or lymphadenopathy. CARDIOVASCULAR: Regular rate and rhythm without murmurs, gallops, or rubs. RESPIRATORY: Breath sounds equal bilaterally. Cracles noted in bases.Mechanical ventilation. GASTROINTESTINAL: Abdomen soft, non-tender, nondistended. MUSCULOSKELETAL: No cyanosis, or edema. BACK: Nontender without obvious deformity. No CVA tenderness. Urinary Catheter: Yes Walters insert reason: Measure Accurate Output A/P Assessment and Plan Respiratory failure - bilateral pneumonia -Pulmonary edema-resolved - Broad-spectrum antibiotics - Mechanical ventilation - Follow-up cultures- NGTD - Pulmonary hypertension - Daily sedation vacation w/ CPAP trial, no longer tolerating it -CXR 11/08 improvement in bilateral pulmonary opacity Septic shock - Due to above - Central line - Arterial line - IV hydrocortisone weaned to 50mg q 8 hour - Normotensive Chronic Hyponatremia- resolved - Pulmonary nodule - possible malignancy - CT chest with contrast confirms nodules - Hep-Lock IV, NaHCO3 infusion dc'd 11/06 -Na WNL A.Fib with RVR - Cardizem gtt off - Amiodarone drip dc'd 11/06 early am, now on PO amiodarone 200mg BID 11/07 -The patient had episode of A. fib RVR possibly secondary to hypokalemia last evening, patient currently resumed on amiodarone infusion. Plans to transition off back to by mouth amiodarone with normalization of potassium. The patient continues on scheduled doses of potassium in the setting of every 6 hours diuresis with Lasix. Hypothyroidism - Synthroid - 11/08 TSH , T4 WNL Hypokalemia - replacement per protocol -50 mEq of calcium chloride by mouth twice a day -Follow up repeat potassium level this afternoon DVT GI prophylaxis - Heparin and Pepcid Stage II coccygeal ulcer Wound care consulted-Calazime application BID Critical Care: This patient remains critically ill with one or more organ systems which are or may become a threat to life. I have spent in excess of 30 minutes discontinuously in the care and management of this patient. This time is exclusive of procedures, and includes, but is not limited to, evaluation of the patient, review of the medical record, discussions with family, consultants, nursing staff, or respiratory therapy, and documentation in the medical record. Contacted state attorney's office Mr. Humphrey power of state attorney for patient updated him on patient's medical status, palliative care Dr. Clark notified discussion with significant other/family member and Mr. Humphrey-assisted made for withdrawal/comfort care measures. Physician Clarisse Chavira MD Nov 10, 2016 17:46
--- NOTE | 2016-11-10 17:47 | HHI.DS ---
Summary Note Admission Date Nov 01, 2016 at 13:47 Admitting Diagnosis sepsis, pneumonia, A. fib with RVR Diagnosis at Time of : (1) Respiratory failure requiring intubation ICD Code: J96.90 (2) Atrial fibrillation with RVR ICD Code: I48.91 (3) Pneumonia ICD Code: J18.9 (4) Pulmonary nodule ICD Code: R91.1 (5) HTN (hypertension) ICD Code: I10 (6) Chronic hyponatremia ICD Code: E87.1 CBC/BMP: 11/08/16 0445 11/10/16 0344 Significant Findings Laboratory Tests Test 11/07/16 11/08/16 11/09/16 11/10/16 23:00 04:45 01:53 03:44 Potassium Level 2.8 MEQ/L 2.5 MEQ/L 3.4 MEQ/L (3.5-5.1) (3.5-5.1) (3.5-5.1) Red Blood Count 3.44 MIL/MM3 (4.00-5.30) Hemoglobin 10.5 GM/DL (11.6-15.3) Hematocrit 30.3 % (35.0-46.0) Red Cell Distribution Width 20.9 % (11.6-17.2) Platelet Count 97 TH/MM3 (150-450) Chloride Level 97 MEQ/L (98-107) Carbon Dioxide Level 38.3 MEQ/L 38.3 MEQ/L 35.6 MEQ/L (21.0-32.0) (21.0-32.0) (21.0-32.0) Blood Urea Nitrogen 20 MG/DL (7-18) 20 MG/DL (7-18) 27 MG/DL (7-18) Estimat Glomerular Filtration 85 ML/MIN (>89) Rate Random Glucose 118 MG/DL 133 MG/DL 116 MG/DL (74-106) (74-106) (74-106) Calcium Level 6.8 MG/DL 7.5 MG/DL 7.8 MG/DL (8.5-10.1) (8.5-10.1) (8.5-10.1) Protein Corrected Calcium 7.9 MG/DL (8.5-10.1) Total Protein 5.0 GM/DL (6.4-8.2) Phosphorus Level 2.4 MG/DL (2.5-4.9) Imaging Last 24 hours Impressions Chest X-Ray 11/01/16 1112 Signed Impressions: Service Date/Time: Tuesday, November 01, 2016 11:33 - CONCLUSION: Bibasilar pneumonia. Abhijeet Domingo MD Head CT 11/01/16 0000 Signed Impressions: Service Date/Time: Tuesday, November 01, 2016 11:53 - CONCLUSION: Atrophy. No acute intracranial abnormality demonstrated. Abhijeet Domingo MD Chest X-Ray 11/01/16 0000 Signed Impressions: Service Date/Time: Tuesday, November 01, 2016 16:33 - CONCLUSION: 1. Uncomplicated line placement. No evidence of pneumothorax. 2. Satisfactory position of endotracheal tube as above. 3. Nasogastric tube coiled in the hypopharynx with its tip at the thoracic inlet 4. Cardiomegaly and findings of congestive heart failure. Anil Oconnor MD Hospital Course 86-year-old female came for slurred speech. Her significant other present in the emergency department giving most of the history. He says that since yesterday morning she's been having this slurred speech. She looked short of breath as well and sats were 93% on room air, was tachycardic and hypotensive. She was intubated by ER attending and is admitted to ICU with bilateral pneumonia. Subjective: 11/06: The patient's bicarbonate level was noted to be elevated. Sodium bicarbonate infusion discontinued. Patient was noted to have level low potassium level which were repleted today. 11/07: The patient remains in SR. Amiodarone has been transitioned to PO.The patient has been weaned off Diprivan, appears more alert, moving extremities x 4 , but not following commands. The patient continues on diuretics QID, CXR revealed this am, worsening pulmonary edema. Additional dose of lasix 40mg x 1 dose. 11/08: The patient received extra doses of Lasix for diuresis yesterday, chest x- ray slightly improved today. CPAP failed yesterday. Initiation of CPAP today reveal lasting greater than 4 hours, however patient still not following commands. Wound care was consult for reddened area stage II on coccyx. 11/09: Afebrile. The patient more awake and responsive. Nodding head and following commands today. Currently tolerating CPAP trials for greater than 4 hours today. Wound care consult performed revealing a deep tissue injury opening full-thickness wound on sacrum. Calazime twice a day ordered for treatment. Last night the patient's on became hypokalemic scheduled doses of potassium were not given, and the patient was placed back on amiodarone infusion. 11/10: Patient not tolerating CPAP today. Extensive discussion with family member and Mr. Velez (POA). Family requesting palliative consult for withdrawal today. 11/10: Comfort care measures instituted. The patient / time of at 1730. Clarisse Le MD Nov 10, 2016 17:47
[2016-11-10] MEDS ORDERED: LORazepam 2 MG/ML VIAL IV SCH (18:00)
== END 2016-11-10 17:30 | disposition expired | DRG 870 ==
LOC: NEPE 11:08 → NEDA 13:47 → NEDH 18:15 → HIME 21:15
PROVIDERS: ADMIT Internal Medicine Critical Care Medicine; ATTEND Internal Medicine Critical Care Medicine
PROC: 5A1955Z Respiratory Ventilation, Greater than 96 Consecutive Hours (ICD-10-PCS; principal; 2016-11-01)
PROC: 0BH17EZ Insertion of Endotracheal Airway into Trachea, Via Natural or Artificial Opening (ICD-10-PCS; 2016-11-01)
PROC: 02HV33Z Insertion of Infusion Device into Superior Vena Cava, Percutaneous Approach (ICD-10-PCS; 2016-11-01)
DX: A41.9 Sepsis, unspecified organism (principal); Z51.5 Encounter for palliative care; R65.21 Severe sepsis with septic shock; J90 Pleural effusion, not elsewhere classified; G93.40 Encephalopathy, unspecified; J18.9 Pneumonia, unspecified organism; J96.90 Respiratory failure, unspecified, unspecified whether with hypoxia or hypercapnia; J44.0 Chronic obstructive pulmonary disease with (acute) lower respiratory infection; J81.1 Chronic pulmonary edema; L89.152 Pressure ulcer of sacral region, stage 2; C34.91 Malignant neoplasm of unspecified part of right bronchus or lung; E87.1 Hypo-osmolality and hyponatremia; J98.11 Atelectasis; I27.2 Other secondary pulmonary hypertension; G62.9 Polyneuropathy, unspecified; I48.0 Paroxysmal atrial fibrillation; I10 Essential (primary) hypertension; E03.9 Hypothyroidism, unspecified; E87.6 Hypokalemia; K21.9 Gastro-esophageal reflux disease without esophagitis; R47.81 Slurred speech; I08.3 Combined rheumatic disorders of mitral, aortic and tricuspid valves; H91.90 Unspecified hearing loss, unspecified ear; M19.90 Unspecified osteoarthritis, unspecified site; M81.0 Age-related osteoporosis without current pathological fracture; F41.9 Anxiety disorder, unspecified; Z66 Do not resuscitate; Z78.1 Physical restraint status; Z87.891 Personal history of nicotine dependence; Z88.5 Allergy status to narcotic agent
CPT/HCPCS: 31500; 36556; 36600; 70450; 71010; 71260; 80048; 80053; 80202; 81001; 82805; 83605; 83735; 83880; 84100; 84132; 84155; 84439; 84443; 84484; 85007; 85025; 85027; 87040; 87449; 87641; 93005; 93306; 94002; 94003; 94640; 94664; 96374; 99292; J0171; J0282; J0330; J0456; J1160; J1170; J1644; J1720; J1940; J2060; J2250; J2543; J3010; J3370; J3480; J7030; J7050; J7060; J7070; P9045; Q9967